=== PATIENT | male | born 1960 | race Caucasian/White ===

== ENCOUNTER → 2016-07-19 | Outpatient (CLI) | payer OTHER, BC ==
[~2016-07-19] MED LIST: AC325T PO; AMLO10TA82 PO; ASPI-933 PO; GBPN300C PO; HYDR-34; HYDR-34 PO; HYDR1TAB PO; IBUP-30 PO; MTP100TCR PO; NF-ESOM40C PO; OMEP20CA12 PO; PNT40TEC PO; SCR1T PO; SCR1T1 PO; ZLP10T
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
== END ==
LOC: RAD 13:35
PROVIDERS: ATTEND Family Medicine
DX: M62.838 Other muscle spasm (principal); G89.11 Acute pain due to trauma; S19.9XXA Unspecified injury of neck, initial encounter; V89.2XXA Person injured in unspecified motor-vehicle accident, traffic, initial encounter; Y99.8 Other external cause status
CPT/HCPCS: 72040

== ENCOUNTER → 2016-07-26 | Outpatient (CLI) | payer OTHER, BC ==
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
[2016-07-26 17:43] LABS: ALBUMIN 4.3 G/DL (3.2-4.5); CALCIUM 9.4 MG/DL (8.5-10.1); CREATININE SERUM 1.64 MG/DL (0.60-1.30); PHOSPHORUS 3.8 MG/DL (2.3-4.7); POTASSIUM 4.2 MMOL/L (3.6-5.0)
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
== END ==
LOC: RAD 16:18
PROVIDERS: ATTEND Family Medicine
DX: M25.512 Pain in left shoulder (principal); M54.2 Cervicalgia
CPT/HCPCS: 36415; 72141; 73221; 80069

== ENCOUNTER 2016-09-26 11:11 | Emergency (ER) | payer BC, OTHER ==
[~2016-09-26] VITALS: Ht 180.3 cm; Wt 90.8 kg
[2016-09-26] MEDS ORDERED: fentaNYL INJECTION 100 MCG/2 ML AMP IVP STA (12:09)
[2016-09-26] MEDS ORDERED: NS IV 1000 ML 1,000 ML IV ONE ×2 (12:09→14:03)
[2016-09-26] MEDS ORDERED: ONDANSETRON 4 MG/2 ML (SDV) Z0FRAN IVP ONE ×2 (12:15→14:45)
--- NOTE | 2016-09-26 12:29 | ED Abdominal Pain ---
General Chief Complaint: Abdominal/GI Problems Stated Complaint: CHEST PAIN/RT ABD PAIN Nursing Triage Note: PT C/O N/V, RLQ PAIN, SINCE SATURDAY. Sepsis Screen: No Definite Risk Source of Information: Patient Exam Limitations: No Limitations History of Present Illness Time Seen By Provider: 12:00 Initial Comments Here with report of nausea, vomiting and right lower quadrant pain for the last 4 days. He is unable to keep anything down. He reports that he has intractable pain despite his fentanyl patch. He had an episode of this several weeks ago and was given a get a CT scan but things cleared up. Afterwards he was doing okay until today. Does have history of right hemicolectomy as well as appendectomy and cholecystectomy. Patient is worried about dehydration. Denies fevers. Timing/Duration: 3-4 Days Severity/Quality: Moderate, Severe, Aching Location: RUQ, RLQ Radiation: No Radiation Activities at Onset: None Associated Symptoms: No Chest Pain, No Fever/Chills, Nausea/Vomiting, No Rash, No Shortness of Air, No Swelling/Mass in Abdomen, Weakness Allergies and Home Medications Allergies Coded Allergies: Penicillins (Unverified Allergy, Unknown, 05/06/06) Home Medications Amlodipine Besylate 10 Mg Tablet, 1 EACH PO DAILY, (Reported) Aspirin 81 Mg Tablet.dr, 81 MG PO DAILY, (Reported) Hydrocodone Bit/Acetaminophen 1 Each Tablet, 1 EACH PO Q6HR PRN, (Reported) Pantoprazole Sodium 40 Mg Tablet.dr, 1 TAB PO DAILY, (Reported) Sucralfate 1 Gm Tab, 1 GM PO TID, (Reported) Review of Systems Constitutional: see HPI, No chills, No fever EENTM: No Symptoms Reported Respiratory: No Symptoms Reported Cardiovascular: No Symptoms Reported Gastrointestinal: See HPI, Abdominal Pain, Denies Diarrhea, Nausea, Vomiting Musculoskeletal: no symptoms reported Skin: no symptoms reported Psychiatric/Neurological: No Symptoms Reported All Other Systems Reviewed Negative Unless Noted: Yes Past Qalcljs-Wyfaun-Ewtjhd Hx Patient Social History Alcohol Use: Denies Use Recreational Drug Use: No Smoking Status: Never a Smoker 2nd Hand Smoke Exposure: No Recent Foreign Travel: No Contact w/Someone Who Travel: No Recent Infectious Disease Expo: No Recent Hopitalizations: Yes Immunizations Up To Date Date of Influenza Vaccine: Dec 23, 2012 Surgeries HX Surgeries: Yes (renal stent and heart cath) Surgeries: Appendectomy Respiratory Hx Respiratory Disorders: No Cardiovascular Hx Cardiac Disorders: Yes (Hx of pericarditis in 2003 /c heart cath) Neurological Hx Neurological Disorders: No Reproductive System Hx Reproductive Disorders: No Genitourinary Hx Genitourinary Disorders: No Gastrointestinal Hx Gastrointestinal Disorders: No Musculoskeletal Hx Musculoskeletal Disorders: No Endocrine Hx Endocrine Disorders: No HEENT HX ENT Disorders: No Cancer Hx Cancer: No Cancer: Colon Psychosocial Hx Psychiatric Problems: No Integumentary HX Skin/Integumentary Disorder: No Blood Transfusions Hx Blood Disorders: No Reviewed Nursing Assessment Reviewed/Agree w Nursing PMH: Yes Family Medical History Significant Family History: No Pertinent Family Hx, Heart Disease Physical Exam Vital Signs VS - Last 72 Hours, by Label 09/26/16 11:25 Temp 97.6 Pulse 117 Resp 20 B/P (MAP) 169/115 Pulse Ox 100 O2 Delivery Room Air Capillary Refill : Less Than 3 Seconds General Appearance: WD/WN, no apparent distress HEENT: PERRL/EOMI, pharynx normal Neck: full range of motion, supple Respiratory: lungs clear, normal breath sounds Cardiovascular: regular rate, rhythm, no murmur Gastrointestinal: non tender, soft Extremities: non-tender, normal inspection Back: normal inspection, no CVA tenderness, no vertebral tenderness Neurologic/Psychiatric: alert, oriented x 3 Skin: normal color, warm/dry Progress/Results/Core Measures Results/Orders Lab Results Laboratory Tests Test 09/26/16 11:20 09/26/16 14:45 Range/Units White Blood Count 10.0 4.3-11.0 10^3/uL Red Blood Count 5.65 4.35-5.85 10^6/uL Hemoglobin 15.1 13.3-17.7 G/DL Hematocrit 46 40-54 % Mean Corpuscular Volume 81 80-99 FL Mean Corpuscular Hemoglobin 27 25-34 PG Mean Corpuscular Hemoglobin Concent 33 32-36 G/DL Red Cell Distribution Width 14.1 10.0-14.5 % Platelet Count 363 130-400 10^3/uL Mean Platelet Volume 10.7 H 7.4-10.4 FL Neutrophils (%) (Auto) 75 42-75 % Lymphocytes (%) (Auto) 16 12-44 % Monocytes (%) (Auto) 8 0-12 % Eosinophils (%) (Auto) 1 0-10 % Basophils (%) (Auto) 0 0-10 % Neutrophils # (Auto) 7.5 1.8-7.8 X 10^3 Lymphocytes # (Auto) 1.6 1.0-4.0 X 10^3 Monocytes # (Auto) 0.8 0.0-1.0 X 10^3 Eosinophils # (Auto) 0.1 0.0-0.3 10^3/uL Basophils # (Auto) 0.0 0.0-0.1 10^3/uL Sodium Level 139 135-145 MMOL/L Potassium Level 3.9 3.6-5.0 MMOL/L Chloride Level 101 98-107 MMOL/L Carbon Dioxide Level 24 21-32 MMOL/L Anion Gap 14 5-14 MMOL/L Blood Urea Nitrogen 21 H 7-18 MG/DL Creatinine 1.88 H 0.60-1.30 MG/DL Estimat Glomerular Filtration Rate 38 BUN/Creatinine Ratio 11 Glucose Level 121 H 70-105 MG/DL Calcium Level 10.7 H 8.5-10.1 MG/DL Magnesium Level 2.0 1.8-2.4 MG/DL Total Bilirubin 0.8 0.1-1.0 MG/DL Aspartate Amino Transf (AST/SGOT) 20 5-34 U/L Alanine Aminotransferase (ALT/SGPT) 28 0-55 U/L Alkaline Phosphatase 111 40-136 U/L Total Protein 8.4 H 6.4-8.2 GM/DL Albumin 4.6 H 3.2-4.5 GM/DL Urine Color YELLOW Urine Clarity CLEAR Urine pH 6 5-9 Urine Specific [place] 1.010 L 1.016-1.022 Urine Protein 1+ H NEGATIVE Urine Glucose (UA) NEGATIVE NEGATIVE Urine Ketones NEGATIVE NEGATIVE Urine Nitrite NEGATIVE NEGATIVE Urine Bilirubin NEGATIVE NEGATIVE Urine Urobilinogen NORMAL NORMAL MG/DL Urine Leukocyte Esterase NEGATIVE NEGATIVE Urine RBC (Auto) NEGATIVE NEGATIVE Urine RBC RARE /HPF Urine WBC NONE /HPF Urine Squamous Epithelial Cells RARE /HPF Urine Crystals NONE /LPF Urine Bacteria NEGATIVE /HPF Urine Casts NONE /LPF Urine Mucus NEGATIVE /LPF Urine Other FEW SPERM H /HPF Urine Culture Indicated NO My Orders Orders - MIGUEL HAIRSTON MD Cbc With Automated Diff (09/26/16 12:09) Comprehensive Metabolic Panel (09/26/16 12:09) Magnesium (09/26/16 12:09) Ua Culture If Indicated (09/26/16 12:09) Saline Lock/Iv-Start (09/26/16 12:09) Ns Iv 1000 Ml (Sodium Chloride 0.9%) (09/26/16 12:09) Ondansetron Injection (Zofran Injectio (09/26/16 12:15) Fentanyl Injection (Sublimaze Injection (09/26/16 12:09) Ct Abdomen/Pelvis Wo (09/26/16 12:55) Ns Iv 1000 Ml (Sodium Chloride 0.9%) (09/26/16 14:03) Ondansetron Injection (Zofran Injectio (09/26/16 14:45) Drug Screen Stat (Urine) (09/26/16 15:25) Medications Given in ED Current Medications Medications Dose Ordered Sig/Jamari Route Start Time Stop Time Status Last Admin Dose Admin Ondansetron HCl 4 mg ONCE ONCE IVP 09/26/16 12:15 09/26/16 12:16 DC 09/26/16 12:19 4 MG Ondansetron HCl 4 mg ONCE ONCE IVP 09/26/16 14:45 09/26/16 14:46 DC 09/26/16 15:00 4 MG Sodium Chloride 1,000 ml @ 0 mls/hr Q0M ONCE IV 09/26/16 12:09 09/26/16 12:11 DC 09/26/16 12:19 0 MLS/HR Vital Signs/I&O Vital Sign - Last 12Hours 09/26/16 11:25 Temp 97.6 Pulse 117 Resp 20 B/P (MAP) 169/115 Pulse Ox 100 O2 Delivery Room Air Blood Pressure Mean: 133 Progress Note : Progress Note Seen and evaluated. IV, labs and UA ordered. EKG ordered. Normal saline 1 L bolus. Fentanyl 100 g IV and Zofran 4 mg IV for pain and nausea. Monitor patient. CT abdomen and pelvis without contrast ordered due to patient's high creatinine which is fairly typical for him. 58621: Patient with persistence of nausea and vomiting. Zofran 4 mg IV ordered. Monitor patient. THis did improve his nausea. I discussed the case with Dr Ventura. We will discharge the patient home with RX for Zofran and have him follow up with Dr Ventura. Discussed with patient who verbalized understanding of instructions and agreement with plan. ECG Initial ECG Impression Date: Sep 26, 2016 Initial ECG Impression Time: 11:17 Initial ECG Rate: 117 Initial ECG Rhythm: S.Tach Comment Sinus tachycardia with normal axis. Question of left ventricular hypertrophy. No evidence of ST elevation PA. Similar to previous of 01/21/13. Interpreted by me. Diagnostic Imaging Diagonstic Imaging: CT Plain Films/CT/US/NM/MRI: abdomen, pelvis Comments VIA [facility] [place], [place] NAME: MIGUEL WHALEY [facility] REC#: [id number] PT STATUS: REG ER : 1960 PHYSICIAN: MIGUEL HAIRSTON MD ADMIT DATE: 09/26/16/ER Draft Date of Exam:09/26/16 CT ABDOMEN/PELVIS WO PROCEDURE: CT abdomen and pelvis without contrast. TECHNIQUE: Multiple contiguous axial images were obtained through the abdomen and pelvis without the use of intravenous contrast. INDICATION: Right lower quadrant pain. FINDINGS: There is minimal atelectasis in the right lung base. The liver, the spleen, the pancreas, and the adrenal glands appear unremarkable for an unenhanced exam. Surgical clips in the cholecystectomy bed and around the right kidney are seen. There is stable dilatation of the right renal pelvis without dilatation of the calyces, similar to 2015 exam. There is also dilatation of the distal right ureter, minimally more prominent compared to 2015. No urinary tract stones. The urinary bladder is mildly dilated with no focal lesion. The abdominal aorta is normal in caliber. No para-aortic significantly enlarged lymph node is seen. There is diverticulosis with no diverticulitis. Suture in the cecum is seen. Nonspecific 7 mm omental nodule is seen anteriorly in the mid right abdomen. There is also minimal enlargement of mesenteric lymph nodes. This could be reactive to infectious or inflammatory process. Tiny fat-containing umbilical hernia is seen. Osseous structures demonstrate degenerative changes in the lower lumbar spine. IMPRESSION: There is minimal enlargement of mesenteric and anterior right omental lymph nodes, perhaps secondary to inflammatory or infectious process. Based on prior history of malignancy, followup CT scan in three months is recommended to ensure no further significant enlargement is seen. Dictated on workstation # [id number] Dict: 09/26/16 1359 Trans: 09/26/16 [id number] [id number] Interpreted by: MAGALI DUNCAN MD Electronically signed by: Departure Impression Impression: Primary Impression: Nausea and vomiting Qualified Codes: R11.14 - Bilious vomiting Additional Impression: Right lower quadrant abdominal pain Disposition: 01 HOME, SELF-CARE Condition: Stable Departure-Patient Inst. Decision time for Depature: 15:37 Referrals: RADHA VENTURA MD (PCP/Family) Primary Care Physician Patient Instructions: Acute Abdomen (Belly Pain), Adult (DC), Nausea and Vomiting, Adult (DC) Add. Discharge Instructions: All discharge instructions reviewed with patient and/or family. Voiced understanding. Clear liquid diet for 24 hours and then advance as tolerated. Follow-up with your doctor next week for recheck and further evaluation. Return for worse pain , fever, vomiting, weakness, breathing problems or other concerns as needed. Scripts Ondansetron (Ondansetron Odt) 4 Mg Tab.rapdis 4 MG PO Q6H Y for NAUSEA/VOMITING, #20 TAB 0 Refills Prov: MIGUEL HAIRSTON MD 09/26/16 Copy Copies To 1: RADHA VENTURA MD, TIMOTHY D MD Sep 26, 2016 12:29
[2016-09-26 12:31] LABS: BASOPHILS % (AUTO) 0 % (0-10); EOSINOPHILS # (AUTO) 0.1 10^3/uL (0.0-0.3); EOSINOPHILS % (AUTO) 1 % (0-10); LYMPHOCYTES # (AUTO) 1.6 X 10^3 (1.0-4.0); LYMPHOCYTES % (AUTO) 16 % (12-44); MEAN CORPUSCULAR HEMOGLOBIN 27 PG (25-34); MEAN CORPUSCULAR HGB CONC 33 G/DL (32-36); MEAN CORPUSCULAR VOLUME 81 FL (80-99); MEAN PLATELET VOLUME 10.7 FL (7.4-10.4); MONOCYTES # (AUTO) 0.8 X 10^3 (0.0-1.0); MONOCYTES % (AUTO) 8 % (0-12); NEUTROPHILS # (AUTO) 7.5 X 10^3 (1.8-7.8); NEUTROPHILS % (AUTO) 75 % (42-75); PLATELET COUNT 363 10^3/uL (130-400); RED BLOOD COUNT 5.65 10^6/uL (4.35-5.85); RED CELL DISTRIBUTION WIDTH 14.1 % (10.0-14.5)
[2016-09-26 12:35] LABS: ALBUMIN 4.6 GM/DL (3.2-4.5); BILIRUBIN,TOTAL 0.8 MG/DL (0.1-1.0); CALCIUM 10.7 MG/DL (8.5-10.1); CREATININE SERUM 1.88 MG/DL (0.60-1.30); POTASSIUM 3.9 MMOL/L (3.6-5.0); TOTAL PROTEIN 8.4 GM/DL (6.4-8.2)
--- NOTE | 2016-09-26 14:39 | Diagnostic Imaging Report ---
PROCEDURE: CT abdomen and pelvis without contrast. TECHNIQUE: Multiple contiguous axial images were obtained through the abdomen and pelvis without the use of intravenous contrast. INDICATION: Right lower quadrant pain. FINDINGS: There is minimal atelectasis in the right lung base. The liver, the spleen, the pancreas, and the adrenal glands appear unremarkable for an unenhanced exam. Surgical clips in the cholecystectomy bed and around the right kidney are seen. There is stable dilatation of the right renal pelvis without dilatation of the calyces, similar to 2015 exam. There is also dilatation of the distal right ureter, minimally more prominent compared to 2015. No urinary tract stones. The urinary bladder is mildly dilated with no focal lesion. The abdominal aorta is normal in caliber. No para-aortic significantly enlarged lymph node is seen. There is diverticulosis with no diverticulitis. Suture in the cecum is seen. Nonspecific 7 mm omental nodule is seen anteriorly in the mid right abdomen. There is also minimal enlargement of mesenteric lymph nodes. This could be reactive to infectious or inflammatory process. Tiny fat-containing umbilical hernia is seen. Osseous structures demonstrate degenerative changes in the lower lumbar spine. IMPRESSION: There is minimal enlargement of mesenteric and anterior right omental lymph nodes, perhaps secondary to inflammatory or infectious process. Based on prior history of malignancy, followup CT scan in three months is recommended to ensure no further significant enlargement is seen. Dictated by: Dictated on workstation # [id number]
[2016-09-26 14:52] LABS: BILIRUBIN,URINE NEGATIVE (NEGATIVE); KETONES,URINE NEGATIVE (NEGATIVE); LEUKOCYTE ESTERASE ,URINE NEGATIVE (NEGATIVE); NITRITE,URINE NEGATIVE (NEGATIVE); PH,URINE 6 (5-9); PROTEIN,URINE 1+ (NEGATIVE); UROBILINOGEN,URINE NORMAL (NORMAL)
[2016-09-26 14:59] LABS: SQUAMOUS EPITHELIAL CELL,UR RARE /HPF
[2016-09-26] MEDS ORDERED: ONDA4TAB11 PO (15:40)
[2016-09-26 15:44] VITALS: BP 155/86
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
== END 2016-09-26 15:44 | disposition home or self-care (01) ==
LOC: EDUNIT# 11:11 → ER 11:13
DX: R11.2 Nausea with vomiting, unspecified (principal); R10.31 Right lower quadrant pain; R10.11 Right upper quadrant pain; I31.9 Disease of pericardium, unspecified; Z90.49 Acquired absence of other specified parts of digestive tract; Z85.038 Personal history of other malignant neoplasm of large intestine; Z96.0 Presence of urogenital implants; Z79.82 Long term (current) use of aspirin
CPT/HCPCS: 36415; 74176; 80053; 80306; 81000; 83735; 85025; 93005; 96361; 96374; 96375; 96376

== ENCOUNTER 2016-10-18 11:20 | Outpatient (RCR) | payer BC ==
[~2016-10-18 11:20] MED LIST changes: +ONDA4TAB11 PO
[2016-10-18 11:34] LABS: BASOPHILS % (AUTO) 0 % (0-10); EOSINOPHILS # (AUTO) 0.1 10^3/uL (0.0-0.3); EOSINOPHILS % (AUTO) 2 % (0-10); LYMPHOCYTES # (AUTO) 1.4 X 10^3 (1.0-4.0); LYMPHOCYTES % (AUTO) 23 % (12-44); MEAN CORPUSCULAR HEMOGLOBIN 27 PG (25-34); MEAN CORPUSCULAR HGB CONC 33 G/DL (32-36); MEAN CORPUSCULAR VOLUME 83 FL (80-99); MEAN PLATELET VOLUME 10.9 FL (7.4-10.4); MONOCYTES # (AUTO) 0.5 X 10^3 (0.0-1.0); MONOCYTES % (AUTO) 8 % (0-12); NEUTROPHILS % (AUTO) 68 % (42-75); PLATELET COUNT 270 10^3/uL (130-400); RED CELL DISTRIBUTION WIDTH 14.4 % (10.0-14.5); WHITE BLOOD COUNT 5.9 10^3/uL (4.3-11.0)
== END 2016-12-22 | disposition home or self-care (01) ==
LOC: EDSTATUS 11:20 → LAB 11:20
PROVIDERS: ATTEND Family Medicine
DX: K92.1 Melena (principal)
CPT/HCPCS: 36415; 85025

== ENCOUNTER 2016-11-05 14:52 | Outpatient (RCR) | payer BC ==
[2016-10-10 14:08] LABS: BASOPHILS % (AUTO) 0 % (0-10); EOSINOPHILS # (AUTO) 0.2 10^3/uL (0.0-0.3); EOSINOPHILS % (AUTO) 3 % (0-10); LYMPHOCYTES # (AUTO) 1.2 X 10^3 (1.0-4.0); LYMPHOCYTES % (AUTO) 21 % (12-44); MEAN CORPUSCULAR HEMOGLOBIN 27 PG (25-34); MEAN CORPUSCULAR HGB CONC 32 G/DL (32-36); MEAN CORPUSCULAR VOLUME 84 FL (80-99); MONOCYTES # (AUTO) 0.6 X 10^3 (0.0-1.0); MONOCYTES % (AUTO) 10 % (0-12); NEUTROPHILS # (AUTO) 3.9 X 10^3 (1.8-7.8); NEUTROPHILS % (AUTO) 67 % (42-75); PLATELET COUNT 281 10^3/uL (130-400); RED BLOOD COUNT 4.47 10^6/uL (4.35-5.85); RED CELL DISTRIBUTION WIDTH 14.2 % (10.0-14.5); WHITE BLOOD COUNT 5.8 10^3/uL (4.3-11.0)
[2016-10-10 14:35] LABS: ALBUMIN 3.8 GM/DL (3.2-4.5); BILIRUBIN,TOTAL 0.4 MG/DL (0.1-1.0); CALCIUM 9.2 MG/DL (8.5-10.1); CREATININE SERUM 1.55 MG/DL (0.60-1.30); POTASSIUM 4.3 MMOL/L (3.6-5.0); TOTAL PROTEIN 6.6 GM/DL (6.4-8.2)
[2016-10-16 07:25] LABS: NUMBER HOURS COLLECTED 24 HOURS; URINE VOLUME REF 2350 ML
[2016-10-19 11:52] LABS: 5 HIAA SEROTONIN URINE MG/L 1.3 MG/L; 5 HIAA SEROTONIN URINE RATIO 3 mg/gCR (0-14); 5HIAA CREATININE 45 MG/DL; CREATININE SEROTONIN 1058 MG/D (800-2100)
[2016-10-19 11:53] LABS: 5 HIAA URINE INTERPRETATION SEE FOOTNOTE
== END 2016-12-22 | disposition home or self-care (01) ==
LOC: ONC 14:52
PROVIDERS: ATTEND Internal Medicine Hematology & Oncology
DX: Z08 Encounter for follow-up examination after completed treatment for malignant neoplasm (principal); Z85.828 Personal history of other malignant neoplasm of skin; Z85.89 Personal history of malignant neoplasm of other organs and systems
CPT/HCPCS: 36415; 80053; 83497; 83615; 85025; 86316

== ENCOUNTER → 2017-01-02 | Outpatient (CLI) | payer BC ==
--- NOTE | 2017-01-02 10:57 | Diagnostic Imaging Report ---
PROCEDURE: CT abdomen and pelvis without contrast. TECHNIQUE: Multiple contiguous axial images were obtained through the abdomen and pelvis without the use of intravenous contrast. INDICATION: History of malignancy. COMPARISON: 09/26/2016 FINDINGS: Included portions of the lung bases show a small 3 mm micronodule in the included portions of the lateral margins of the left upper lobe (image 9, series 2). This, however, is stable compared to 09/17/2014. Small subpleural micronodule is also noted within the posterior medial margin of the right lower lobe. This too, however, is stable (image 24, series 2 compared to image 42, series 2). CT abdomen: Postsurgical changes of the right lower abdominal quadrant and right renal fossa are again identified. The kidneys have a stable noncontrast CT appearance. Nonobstructive calculus is again noted on the right. The spleen, liver, pancreas, and adrenal glands have an unremarkable noncontrast CT appearance. Small bowel loops are nondistended. Normal appendix cannot be adequately identified, but is likely surgically absent. There is no loculated fluid collection, free fluid, nor free air within the abdomen. No abnormal mesenteric or retroperitoneal adenopathy is seen. Bony structures show no acute abnormalities. CT pelvis: There is asymmetric prominence of the distal right ureter. Urinary bladder is unopacified. No calculi are seen within the urinary bladder. There is no loculated fluid collection, free fluid, nor free air within the pelvis. No abnormal lymph nodes are seen. Bony structures show no acute abnormalities. IMPRESSION: 1. Stable CT of the abdomen and pelvis. There is no evidence of recurrent or residual metastatic or malignant disease. 2. Stable micronodules within the included portions of the left upper and right lower lobes. Dictated by: Dictated on workstation # [id number]
== END ==
LOC: RAD 10:00
PROVIDERS: ATTEND Internal Medicine Hematology & Oncology
DX: C18.1 Malignant neoplasm of appendix (principal); R91.8 Other nonspecific abnormal finding of lung field
CPT/HCPCS: 74176

== ENCOUNTER 2017-01-16 11:00 | Outpatient (RCR) | payer BC ==
[2017-04-08] MEDS ORDERED: HYOS0.1281 PO (08:00)
== END 2017-04-16 | disposition home or self-care (01) ==
LOC: ONC 11:00
PROVIDERS: ATTEND Internal Medicine Hematology & Oncology
DX: Z08 Encounter for follow-up examination after completed treatment for malignant neoplasm (principal); Z85.038 Personal history of other malignant neoplasm of large intestine; Z85.528 Personal history of other malignant neoplasm of kidney; R19.7 Diarrhea, unspecified; I12.9 Hypertensive chronic kidney disease with stage 1 through stage 4 chronic kidney disease, or unspecified chronic kidney disease; N18.3 Chronic kidney disease, stage 3 (moderate); Z79.899 Other long term (current) drug therapy
CPT/HCPCS: 99213

== ENCOUNTER 2017-04-08 04:53 | Emergency (ER) | payer BC ==
[~2017-04-08] VITALS: Ht 177.8 cm; Wt 75.7 kg
--- OUTSIDE RECORDS SUMMARY | 2017-04-08 05:26 | XMS REPORT | Clinical Summary ---
Author Author [facility] Organization [facility] Address Unknown Phone Unavailable Care Team Providers Care It Security Administrator Name Role Phone PCP Unavailable Source Comments Some departments are not documenting in the electronic medical record. If you do not see the information that you expected, contact Release of Information in the Health Information Management department at [phone] for further assistance in locating additional records.[facility] Allergies Active Allergy Reactions Severity Noted Date Comments Penicillins RASH 02/06/2013 Current Medications Prescription Sig. Disp. Refills Start [...] referred to Dr. Jessica for laparoscopic appendectomy 08/21 at [facility] 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 No evidence of recurrence on CT scan. Continue to follow with urology. Family History Medical History Relation Name Comments Diabetes Brother None Reported Father Cancer-Prostate Maternal Grandfather Heart Attack Maternal Grandfather Hypertension Maternal Grandfather Arthritis-osteo Maternal Grandmother None Reported Maternal Uncle Unknown to Patient Mother Cancer Paternal Aunt Brain Tumor Paternal Grandfather Unknown to Patient Paternal Grandfather Unknown to Patient Paternal Grandmother None Reported Paternal Uncle Relation Name Status Comments Brother Father Maternal Grandfather Maternal Grandmother Maternal Uncle Mother Paternal Aunt Paternal Grandfather Paternal Grandmother Paternal Uncle Social History Tobacco Use Types Packs/Day Years Used Date Never Smoker Smokeless Tobacco: Never Used Alcohol Use Drinks/Week oz/Week Comments Yes 15 Cans of 9.0 beer Sex Assigned at Date Recorded Not on file Last Filed Vital Signs Vital Sign Reading Time Taken Blood Pressure 157/101 09/22/2013 1:57 PM CDT Pulse 96 09/22/2013 1:57 PM CDT Temperature 36.6 C (97.9 F) 02/19/2013 9:07 AM [employer]ER Respiratory Rate 16 03/10/2013 2:15 PM [employer]ER Oxygen Saturation 100% 09/22/2013 1:57 PM CDT Inhaled Oxygen - - Concentration Weight 88.7 kg (195 lb 9.6 oz) 09/22/2013 1:57 PM CDT Height 176.5 cm (5' 9.5") 09/22/2013 1:57 PM CDT Body Mass Index 28.47 09/22/2013 1:57 PM CDT Plan of Treatment Health Maintenance Due Date Last Done Comments HEPATITIS C SCREENING 1961 PHYSICAL (COMPREHENSIVE) 1968 EXAM PERTUSSIS VACCINE 1972 TETANUS VACCINE 1978 COLORECTAL CANCER 11/08/2011 SCREENING INFLUENZA VACCINE 10/23/2016 Results Not on filefrom Last 3 Months
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
[2017-04-08] MEDS ORDERED: NS IV 1000 ML 1,000 ML IV STA (06:04)
[2017-04-08] MEDS ORDERED: fentaNYL INJECTION 100 MCG/2 ML AMP IVP STA (06:09)
[2017-04-08 06:11] LABS: BASOPHILS % (AUTO) 0 % (0-10); EOSINOPHILS # (AUTO) 0.2 10^3/uL (0.0-0.3); EOSINOPHILS % (AUTO) 2 % (0-10); HEMATOCRIT 40 % (40-54); HEMOGLOBIN 13.7 G/DL (13.3-17.7); LYMPHOCYTES # (AUTO) 1.7 X 10^3 (1.0-4.0); LYMPHOCYTES % (AUTO) 24 % (12-44); MEAN CORPUSCULAR HEMOGLOBIN 28 PG (25-34); MEAN CORPUSCULAR HGB CONC 35 G/DL (32-36); MEAN CORPUSCULAR VOLUME 80 FL (80-99); MEAN PLATELET VOLUME 10.6 FL (7.4-10.4); MONOCYTES # (AUTO) 0.7 X 10^3 (0.0-1.0); MONOCYTES % (AUTO) 10 % (0-12); NEUTROPHILS # (AUTO) 4.4 X 10^3 (1.8-7.8); NEUTROPHILS % (AUTO) 63 % (42-75); PLATELET COUNT 288 10^3/uL (130-400); RED BLOOD COUNT 4.98 10^6/uL (4.35-5.85)
[2017-04-08] MEDS ORDERED: ONDANSETRON 4 MG/2 ML (SDV) Z0FRAN IVP ONE (06:15)
[2017-04-08] MEDS ORDERED: HYOSCYAMINE 0.125 MG (LEVSIN) TAB SL ONE (06:15)
[2017-04-08 06:22] LABS: ALBUMIN 4.2 GM/DL (3.2-4.5); BILIRUBIN,TOTAL 0.3 MG/DL (0.1-1.0); CALCIUM 9.8 MG/DL (8.5-10.1); CREATININE SERUM 1.76 MG/DL (0.60-1.30); MAGNESIUM 2.1 MG/DL (1.8-2.4); POTASSIUM 3.8 MMOL/L (3.6-5.0); TOTAL PROTEIN 7.6 GM/DL (6.4-8.2)
--- NOTE | 2017-04-08 06:32 | ED Abdominal Pain ---
General Chief Complaint: Abdominal/GI Problems Stated Complaint: R AB PAIN Nursing Triage Note: PT C/O N/V SINCE SATURDAY. HE REPORTS THAT THIS MORNING HE BEGAN HAVING RLQ ABD CRAMPING AND WATERY DIARRHEA. Sepsis Screen: No Definite Risk Source of Information: Patient Exam Limitations: No Limitations History of Present Illness Time Seen By Provider: 05:50 Initial Comments Patient has ER by private conveyance with chief complaint of for the past week he has been having some nausea vomiting and watery stools. He has treated this to probably viral. He does have a history of multiple surgeries on his abdomen to include a right heminephrectomy for renal cell carcinoma and then subsequent right hemicolectomy for a neuroendocrine tumor as well as previous to that had his appendix out and gallbladder removed. He is having pain in his right lower quadrant at the site of one of the scars for his hemicolectomy. He is not feeling any hard knots or bowel protrusion. This morning he started having a [place] to red, tomato juice consistent loose stools and this concerned him so he decided to come the ER. Prior to this he been using Imodium which was working pretty well to keep his stools consistent. He is having no fevers, chills, rash, shortness of breath, chest pain. Allergies and Home Medications Allergies Coded Allergies: Penicillins (Unverified Allergy, Unknown, 05/06/06) Home Medications Amlodipine Besylate 10 Mg Tablet, 1 EACH PO DAILY, (Reported) Aspirin 81 Mg Tablet.dr, 81 MG PO DAILY, (Reported) Hydrocodone Bit/Acetaminophen 1 Each Tablet, 1 EACH PO Q6HR PRN, (Reported) Ondansetron 4 Mg Tab.rapdis, 4 MG PO Q6H PRN for NAUSEA/VOMITING, #20 Ref 0 Prescribed by: MIGUEL HAIRSTON on 09/26/16 1540 Pantoprazole Sodium 40 Mg Tablet., 1 TAB PO DAILY, (Reported) Sucralfate 1 Gm Tab, 1 GM PO TID, (Reported) Review of Systems Constitutional: No chills, No fever, malaise Respiratory: Denies Cough, Denies Shortness of Air Cardiovascular: Denies Chest Pain, Denies Syncope Gastrointestinal: See HPI, Denies Abdomen Distended, Abdominal Pain, Denies Constipated, Diarrhea, Nausea, Vomiting Genitourinary: Denies Burning, Denies Discharge Musculoskeletal: No back pain, No joint pain Skin: No pruritus, No rash Past Tnikvel-Pkdmow-Ohyndh Hx Patient Social History Alcohol Use: Denies Use Recreational Drug Use: No Smoking Status: Never a Smoker 2nd Hand Smoke Exposure: No Recent Foreign Travel: No Contact w/Someone Who Travel: No Recent Infectious Disease Expo: No Recent Hopitalizations: No Immunizations Up To Date Date of Influenza Vaccine: Dec 23, 2012 Seasonal Allergies Seasonal Allergies: No Surgeries History of Surgeries: Yes (renal stent and heart cath, R HEMICOLECTOMY, PARTIAL R NEPHRECTOMY) Surgeries: Appendectomy, Gallbladder Respiratory History of Respiratory Disorde: No Cardiovascular History of Cardiac Disorders: Yes (Hx of pericarditis in 2002 /c heart cath) Neurological History of Neurological Disord: No Reproductive System Hx Reproductive Disorders: No Gastrointestinal History of Gastrointestinal Di: No Musculoskeletal History of Musculoskeletal Dis: No Endocrine History of Endocrine Disorders: No Cancer History of Cancer: Yes (RENAL CELL CA) Cancer: Colon Psychosocial History of Psychiatric Problem: No Integumentary History of Skin or Integumenta: No Blood Transfusions History of Blood Disorders: No Family Medical History Significant Family History: No Pertinent Family Hx, Heart Disease Physical Exam Vital Signs VS - Last 72 Hours, by Label 04/08/17 05:55 Temp 98.3 Pulse 98 Resp 20 B/P (MAP) 139/109 (119) Pulse Ox 98 O2 Delivery Room Air Capillary Refill : Less Than 3 Seconds General Appearance: WD/WN, mild distress HEENT: PERRL/EOMI, pharynx normal Neck: non-tender, normal inspection Respiratory: chest non-tender, lungs clear, normal breath sounds, no respiratory distress, no accessory muscle use Cardiovascular: normal peripheral pulses, regular rate, rhythm, no edema Peripheral Pulses: 2+ Radial Pulses (R), 2+ Radial Pulses (L) Gastrointestinal: soft, abnormal bowel sounds (active), No rebound, tenderness (right mid abdomen at the level of a horizontal surgical scar that is well- healed without induration, erythema, palpable mass, open wound.) Rectal: normal exam, normal rectal tone, No black stool, No blood streaked stool, No hemorrhoids, No mass, No tenderness Extremities: no pedal edema, no calf tenderness, normal capillary refill Back: normal inspection, no vertebral tenderness Neurologic/Psychiatric: alert, oriented x 3 Skin: normal color, warm/dry Progress/Results/Core Measures Results/Orders Lab Results Laboratory Tests Test 04/08/17 05:50 Range/Units White Blood Count 7.0 4.3-11.0 10^3/uL Red Blood Count 4.98 4.35-5.85 10^6/uL Hemoglobin 13.7 13.3-17.7 G/DL Hematocrit 40 40-54 % Mean Corpuscular Volume 80 80-99 FL Mean Corpuscular Hemoglobin 28 25-34 PG Mean Corpuscular Hemoglobin Concent 35 32-36 G/DL Red Cell Distribution Width 14.0 10.0-14.5 % Platelet Count 288 130-400 10^3/uL Mean Platelet Volume 10.6 H 7.4-10.4 FL Neutrophils (%) (Auto) 63 42-75 % Lymphocytes (%) (Auto) 24 12-44 % Monocytes (%) (Auto) 10 0-12 % Eosinophils (%) (Auto) 2 0-10 % Basophils (%) (Auto) 0 0-10 % Neutrophils # (Auto) 4.4 1.8-7.8 X 10^3 Lymphocytes # (Auto) 1.7 1.0-4.0 X 10^3 Monocytes # (Auto) 0.7 0.0-1.0 X 10^3 Eosinophils # (Auto) 0.2 0.0-0.3 10^3/uL Basophils # (Auto) 0.0 0.0-0.1 10^3/uL Sodium Level 140 135-145 MMOL/L Potassium Level 3.8 3.6-5.0 MMOL/L Chloride Level 105 98-107 MMOL/L Carbon Dioxide Level 23 21-32 MMOL/L Anion Gap 12 5-14 MMOL/L Blood Urea Nitrogen 19 H 7-18 MG/DL Creatinine 1.76 H 0.60-1.30 MG/DL Estimat Glomerular Filtration Rate 40 BUN/Creatinine Ratio 11 Glucose Level 116 H 70-105 MG/DL Calcium Level 9.8 8.5-10.1 MG/DL Magnesium Level 2.1 1.8-2.4 MG/DL Total Bilirubin 0.3 0.1-1.0 MG/DL Aspartate Amino Transf (AST/SGOT) 17 5-34 U/L Alanine Aminotransferase (ALT/SGPT) 18 0-55 U/L Alkaline Phosphatase 104 40-136 U/L Total Protein 7.6 6.4-8.2 GM/DL Albumin 4.2 3.2-4.5 GM/DL My Orders Orders - NIALLNEVAEH Costello Ct Abdomen/Pelvis Wo (04/08/17 06:26) Fentanyl Injection (Sublimaze Injection (04/08/17 07:30) Ua Culture If Indicated (04/08/17 07:19) Medications Given in ED Current Medications Medications Dose Ordered Sig/Jamari Route Start Time Stop Time Status Last Admin Dose Admin Fentanyl Citrate 50 mcg ONCE ONCE IVP 04/08/17 07:30 04/08/17 07:31 DC 04/08/17 07:21 50 MCG Hyoscyamine Sulfate 0.125 mg ONCE ONCE SL 04/08/17 06:15 04/08/17 06:16 DC 04/08/17 06:24 0.125 MG Ondansetron HCl 4 mg ONCE ONCE IVP 04/08/17 06:15 04/08/17 06:16 DC 04/08/17 06:24 4 MG Vital Signs/I&O Vital Sign - Last 12Hours 04/08/17 05:55 Temp 98.3 Pulse 98 Resp 20 B/P (MAP) 139/109 (119) Pulse Ox 98 O2 Delivery Room Air Blood Pressure Mean: 119 Progress Note : Time: 07:42 Progress Note With his history of partial nephrectomy and creatinine 1.7 we chose to do a CT scan of his abdomen and pelvis without contrast and get a fecal occult blood test. The CT was unremarkable compared to last exam. Adhesions are most likely. The patient does have a appointment with a surgeon in April and about 2-3 weeks in [place], Dr. Guzman to discuss his possible adhesiolysis. Patient saw surgeon for his having a colectomy and colonoscopy 2 years ago and he thinks is probably about due for another scope. He has a history of Harley's esophagus and also gets EGDs from the surgeon. He does not have an appointment and does not know exactly when it supposed to be rescoped. His fecal occult was negative so we will direct him to his primary care office to figure out when his next colonoscopy and EGD will be due as well as we'll give him a trial of some Levsin to see if that helps with the cramping pain in addition to the Zofran he has a home and the opiates he has at home. He also says he has Imodium. Diagnostic Imaging Diagonstic Imaging: CT Plain Films/CT/US/NM/MRI: abdomen, pelvis Comments Postsurgical changes of a partial colectomy on the right side, anastomosis site seen and appears to be patent. Heminephrectomy on the right side with stable appearing dilated ureter compared to 2016. No obvious transition point in the bowels. No free fluid or free air seen in the abdomen. No acute osseous abnormalities. [facility] [place], [place] NAME: MIGUEL WHALEY [facility] REC#: [id number] PT STATUS: REG ER : 1960 PHYSICIAN: NEVAEH TIERNEY MD ADMIT DATE: 04/08/17/ER Draft Date of Exam:04/08/17 CT ABDOMEN/PELVIS WO PROCEDURE: CT abdomen and pelvis without contrast. TECHNIQUE: Multiple contiguous axial images were obtained through the abdomen and pelvis without the use of intravenous contrast. INDICATION: Abdominal pain and cramping. COMPARISON: 01/02/2017. FINDINGS: There is mild bilateral basilar atelectasis. The liver appears unremarkable. The gallbladder is absent. There is no biliary dilatation. The pancreas, spleen and adrenal glands appear unremarkable. There is cortical thinning and irregularity of the left kidney similar the prior study. Postoperative changes of the right kidney again seen. Renal cortical thinning and scarring on the right with some cortical calcification and irregularity of the renal pelvis appears similar to the prior study. No new renal abnormality is suspected. Bladder diverticulum in the posterior right bladder wall is unchanged. No focal inflammatory process is seen. No free fluid, free air or adenopathy demonstrated. There are postoperative changes in the right lower quadrant and bowel. No evidence of bowel obstruction. Abdominal aorta appears normal in caliber. No acute osseous abnormality is demonstrated. IMPRESSION: 1. Overall, no significant interval change from the prior exam. Chronic findings of the kidneys and postoperative changes are stable. Small bladder diverticulum is unchanged. Dictated on workstation # [id number] Dict: 04/08/17 0723 Trans: 04/08/17 0732 [facility] [id number] Interpreted by: ERYN BLUNT DO Electronically signed by: Reviewed: Reviewed by Me Departure Impression Impression: Primary Impression: Abdominal wall pain Additional Impressions: Nausea and vomiting Qualified Codes: R11.2 - Nausea with vomiting, unspecified Diarrhea Qualified Codes: R19.7 - Diarrhea, unspecified Abdominal adhesions Disposition: 01 HOME, SELF-CARE Condition: Improved Departure-Patient Inst. Decision time for Depature: 07:57 Referrals: RADHA VENTURA MD (PCP/Family) Primary Care Physician Patient Instructions: Acute Abdomen (Belly Pain), Adult (DC) Add. Discharge Instructions: If you're having nausea take a tablet of your Zofran every 4 hours as needed. Try and keep small sips of fluids until you're feeling better and then keep up with your drinking. Eating is not as important that while you're having loose stools a brat diet consisting of things that are bland like bananas, rice, applesauce and toast are advised. Make a follow-up appointment with Dr. Ventura your primary care physician to discuss when you need a repeat colonoscopy and EGD. If you're pain becomes intractable despite your pain medicines at home or you're unable to keep up with your drinking please return to the ER for evaluation and management. Keep your follow-up appointment with the surgeon in [place] Dr. Guzman and discuss possible causes of your abdominal pain to include adhesions. If you're having loose stools and painful abdominal cramps you may try one tablet of Levsin every 4 hours as needed. If this is helping you report this to your primary care physician. All discharge instructions reviewed with patient and/or family. Voiced understanding. Scripts Hyoscyamine Sulfate (Levsin) 0.125 Mg Tablet 0.125 MG PO Q4H Y for CRAMPS, #30 TAB 0 Refills Prov: NEVAEH TIERNEY 04/08/17 Copy Copies To 1: RADHA VENTURA MD, TITUS J Apr 08, 2017 06:32
[2017-04-08] MEDS ORDERED: fentaNYL INJECTION 100 MCG/2 ML AMP IVP ONE (07:30)
--- NOTE | 2017-04-08 07:33 | Diagnostic Imaging Report ---
PROCEDURE: CT abdomen and pelvis without contrast. TECHNIQUE: Multiple contiguous axial images were obtained through the abdomen and pelvis without the use of intravenous contrast. INDICATION: Abdominal pain and cramping. COMPARISON: 01/02/2017. FINDINGS: There is mild bilateral basilar atelectasis. The liver appears unremarkable. The gallbladder is absent. There is no biliary dilatation. The pancreas, spleen and adrenal glands appear unremarkable. There is cortical thinning and irregularity of the left kidney similar the prior study. Postoperative changes of the right kidney again seen. Renal cortical thinning and scarring on the right with some cortical calcification and irregularity of the renal pelvis appears similar to the prior study. No new renal abnormality is suspected. Bladder diverticulum in the posterior right bladder wall is unchanged. No focal inflammatory process is seen. No free fluid, free air or adenopathy demonstrated. There are postoperative changes in the right lower quadrant and bowel. No evidence of bowel obstruction. Abdominal aorta appears normal in caliber. No acute osseous abnormality is demonstrated. IMPRESSION: 1. Overall, no significant interval change from the prior exam. Chronic findings of the kidneys and postoperative changes are stable. Small bladder diverticulum is unchanged. Dictated by: Dictated on workstation # [id number]
[2017-04-08] MEDS ORDERED: HYOS0.1281 PO (08:00)
[2017-04-08 08:06] LABS: BILIRUBIN,URINE NEGATIVE (NEGATIVE); CLARITY,URINE CLEAR; COLOR,URINE YELLOW; GLUCOSE, URINE (UA) NEGATIVE (NEGATIVE); KETONES,URINE NEGATIVE (NEGATIVE); LEUKOCYTE ESTERASE ,URINE NEGATIVE (NEGATIVE); NITRITE,URINE NEGATIVE (NEGATIVE); PH,URINE 6 (5-9); PROTEIN,URINE 2+ (NEGATIVE); UROBILINOGEN,URINE NORMAL (NORMAL)
[2017-04-08 08:17] LABS: BACTERIA,URINE NEGATIVE /HPF; URINE OTHER FEW SPERM /HPF; WBC,URINE 0-2 /HPF
[2017-04-08 08:34] VITALS: BP 139/109
== END 2017-04-08 08:37 | disposition home or self-care (01) ==
LOC: EDUNIT# 04:53 → ER 04:55
DX: K66.0 Peritoneal adhesions (postprocedural) (postinfection) (principal); R19.7 Diarrhea, unspecified; Z85.038 Personal history of other malignant neoplasm of large intestine; Z79.82 Long term (current) use of aspirin; Z90.49 Acquired absence of other specified parts of digestive tract; Z90.5 Acquired absence of kidney
CPT/HCPCS: 36415; 74176; 80053; 81000; 83735; 85025; 96361; 96374; 96375; 96376; 99284

== ENCOUNTER → 2017-05-01 | Outpatient (CLI) | payer SELFPAY ==
[~2017-05-01] MED LIST changes: +HYOS0.1281 PO
--- NOTE | 2017-05-01 18:00 | Diagnostic Imaging Report ---
INDICATION: Chronic renal disease. FINDINGS: The right and left kidneys measure 5.0 x 3.2 x 3.6 cm and 9.8 x 5.9 x 4.9 cm, respectively. There is no evidence of hydronephrosis or mass. Cortex is generally thin without discrete lesion. No echogenic calculus is identified. Ureteric jets are seen bilaterally. IMPRESSION: Relatively small right kidney without evidence of obstruction or other acute abnormality. Renal cortical thinning may be related to chronic medical renal disease. No bladder abnormality is detected. Dictated by: Dictated on workstation # [id number]
== END ==
LOC: RAD 16:20
PROVIDERS: ATTEND Internal Medicine
DX: I12.9 Hypertensive chronic kidney disease with stage 1 through stage 4 chronic kidney disease, or unspecified chronic kidney disease (principal); N18.3 Chronic kidney disease, stage 3 (moderate); Z85.528 Personal history of other malignant neoplasm of kidney
CPT/HCPCS: 76770

== ENCOUNTER 2020-12-02 13:35 | Inpatient (IN) | payer BC, OTHER ==
[2020-12-02] VITALS (7 sets, daily range): BP systolic 150–176; BP diastolic 69–97
[~2020-12-02] VITALS: Ht 180.3 cm; Wt 78.5 kg
[2020-12-02 13:50] LABS: BASOPHILS % (AUTO) 0 % (0-10); EOSINOPHILS # (AUTO) 0.1 10^3/uL (0.0-0.3); EOSINOPHILS % (AUTO) 1 % (0-10); LYMPHOCYTES # (AUTO) 1.7 10^3/uL (1.0-4.0); LYMPHOCYTES % (AUTO) 22 % (12-44); MEAN CORPUSCULAR HEMOGLOBIN 15 pg (25-34); MEAN CORPUSCULAR HGB CONC 25 g/dL (32-36); MEAN CORPUSCULAR VOLUME 60 fL (80-99); MEAN PLATELET VOLUME 9.7 fL (9.0-12.2); MONOCYTES # (AUTO) 0.8 10^3/uL (0.0-1.0); MONOCYTES % (AUTO) 10 % (0-12); NEUTROPHILS # (AUTO) 5.3 10^3/uL (1.8-7.8); NEUTROPHILS % (AUTO) 67 % (42-75); PLATELET COUNT 403 10^3/uL (130-400); WHITE BLOOD COUNT 7.9 10^3/uL (4.3-11.0)
[2020-12-02 13:55] LABS: HEMATOCRIT 17 % (40-54); HEMOGLOBIN 4.2 g/dL (13.3-17.7)
[2020-12-02 13:58] LABS: ALBUMIN 3.9 GM/DL (3.2-4.5); POTASSIUM 3.6 MMOL/L (3.6-5.0)
[2020-12-02 14:00] LABS: CALCIUM 9.5 MG/DL (8.5-10.1)
[2020-12-02 14:01] LABS: TOTAL PROTEIN 7.5 GM/DL (6.4-8.2)
[2020-12-02 14:02] LABS: BILIRUBIN,TOTAL 0.4 MG/DL (0.1-1.0); INR 1.1 (0.8-1.4); PROTHROMBIN TIME PATIENT 14.1 SEC (12.2-14.7)
[2020-12-02 14:04] LABS: CREATININE SERUM 2.41 MG/DL (0.60-1.30)
[2020-12-02 14:07] LABS: MAGNESIUM 1.6 MG/DL (1.6-2.4)
[2020-12-02 14:28] LABS: TSH (THYROID ANALYZER) 0.74 UIU/ML (0.35-4.94)
[2020-12-02 14:36] LABS: BILIRUBIN,URINE NEGATIVE (NEGATIVE); CLARITY,URINE CLEAR; COLOR,URINE YELLOW; GLUCOSE, URINE (UA) NEGATIVE (NEGATIVE); KETONES,URINE NEGATIVE (NEGATIVE); LEUKOCYTE ESTERASE ,URINE NEGATIVE (NEGATIVE); NITRITE,URINE NEGATIVE (NEGATIVE); PROTEIN,URINE NEGATIVE (NEGATIVE)
[2020-12-02] MEDS ORDERED: fentaNYL INJ 100 MCG/2 ML AMP IVP STA ×2 (14:39→16:01)
[2020-12-02 14:44] LABS: AMPHETAMINE SCREEN, URINE NEGATIVE (NEGATIVE); BARBITURATE SCREEN URINE NEGATIVE (NEGATIVE); BENZODIAZEPINES SCREEN URINE NEGATIVE (NEGATIVE); CANNABINOID SCREEN, URINE POSITIVE (NEGATIVE); COCAINE SCREEN URINE NEGATIVE (NEGATIVE); METHADONE STAT NEGATIVE (NEGATIVE); METHAMPHETAMINE SCREEN URINE S NEGATIVE (NEGATIVE); OPIATE SCREEN URINE NEGATIVE (NEGATIVE); OXYCODONE STAT NEGATIVE (NEGATIVE); PROPOXYPHENE STAT NEGATIVE (NEGATIVE); TRICYCLIC ANTIDEPRESSANTS SCRE NEGATIVE (NEGATIVE)
[2020-12-02 14:46] LABS: BACTERIA,URINE NEGATIVE /HPF; SQUAMOUS EPITHELIAL CELL,UR RARE /HPF; WBC,URINE RARE /HPF
--- NOTE | 2020-12-02 14:49 | Diagnostic Imaging Report ---
INDICATION: Pain dizziness. EXAMINATION: Chest 12/02/2020 COMPARISON: 01/21/2013 FINDINGS: The cardiomediastinal silhouette is unremarkable. The pulmonary vasculature is within normal limits. The lungs and pleural spaces are clear. IMPRESSION: No evidence of an acute cardiopulmonary process. Dictated by: Dictated on workstation # [id number]
[2020-12-02] MEDS ORDERED: NS IV 500 ML 500 ML ONE (15:20)
--- NOTE | 2020-12-02 15:37 | History & Physical-Hospitalist ---
History of Present Illness HPI/Chief Complaint Patient is a 60-year-old male with a past medical history of insulin- dependent diabetes and hypertension who presented to the emergency department due to hypoxia. He was diagnosed with Covid on November 24 and presented today to the outpatient [facility]. He was found to have oxygen saturations in the 60s and brought emergently to the ER. He was placed on 15 L nonrebreather and saturations only came up to the mid 80s. He was then placed on BiPAP. He is able to answer yes/no questions but otherwise has difficulty with providing history. He is able to nod and shake his head appropriately when asked questions. He complains of minor productive cough, headache, generalized weakness and myalgias. He denies fever, nausea or vomiting, diarrhea, loss of taste or smell. He is unvaccinated against Covid. Date Seen 12/02/20 Time Seen by a Provider: 15:45 Attending Physician PCP Yosvany Srivastava MD Referring Physician Date of Admission Home Medications & Allergies Home Medications Reviewed patient Home Medication Reconciliation performed by pharmacy medication reconciliations orthotic and prosthetic technician and/or nursing. Patients Allergies have been reviewed. Allergies Allergies Coded Allergies Penicillins (Unverified Allergy, Unknown, 05/06/06) Past Pvebryp-Qyzucl-Ytxxjr Hx Patient Social History Marrital Status: Employed/Student: employed Tobacco Use?: No Smoking Status: Unknown if Ever Smoked Use of E-Cig and/or Vaping dev: No Substance use?: No Alcohol Use?: No Pt feels they are or have been: No Immunizations Up To Date Date of Influenza Vaccine: Dec 23, 2012 Tetanus Booster (TDap): Unknown Hepatitis A: Yes Seasonal Allergies Seasonal Allergies: No Current Status Advance Directives: No Primary Language: Mongolian Preferred Spoken Language: Mongolian Past Medical History Surgeries: Appendectomy, Gallbladder Hypertension Diabetes, Insulin dep Colon Blood Disorders: No Family Medical History Reviewed Nursing Family Hx No Pertinent Family Hx, Heart Disease Review of Systems Constitutional: No chills, No fever EENTM: no symptoms reported Respiratory: cough, short of breath Cardiovascular: No chest pain, No edema, No palpitations Psychiatric/Neurological: No Symptoms Reported Physical Exam Physical Exam Vital Signs Vital Signs - First Documented 12/02/20 13:35 Temp 36.7 Pulse 140 Resp 27 B/P (MAP) 152/79 (103) Pulse Ox 100 O2 Delivery Room Air Capillary Refill : Less Than 3 Seconds Height, Weight, BMI Height: 5'10.00" Weight: 167lbs. 3.0oz. 75.592519ml; 25.00 BMI Method:Stated Results Results/Procedures Labs Laboratory Tests 12/02/20 13:41 Patient resulted labs reviewed. Clinical Quality Measures AMI/AHF: ASA po Prior to arrival: Yes MAKAYLA CHAPMAN MD Dec 02, 2020 15:37
--- NOTE | 2020-12-02 15:37 | History & Physical-Hospitalist ---
DIMITRIOS CHUNG A MED STUDENT 12/02/20 1537: History of Present Illness HPI/Chief Complaint Pt is a 60 yo male who presented to ED d/t SOA, tachycardia and blacking out that has been going on for 8 months. These sxs generally occur when the pt is exerting himself. Pt reports leg weakness and inability to walk during these episodes. Pt has hx of colon resection d/t cancer and renal cell carcinoma. Pt has not seen physician in several years for this. Pt denies dark tarry stools, but admits diarrhea. Pt admits to abdominal pain in the area of his previous scar and decreased appetite. Pt reports during his episodes his diastolic BP goes down to 40s. Source: patient Exam Limitations: no limitations Date Seen 12/02/20 Time Seen by a Provider: 15:00 Attending Physician PCP Yosvany Srivastava MD Referring Physician Date of Admission Home Medications & Allergies Home Medications Reviewed patient Home Medication Reconciliation performed by pharmacy medication reconciliations lot technician and/or nursing. Patients Allergies have been reviewed. Allergies Allergies Coded Allergies Penicillins (Unverified Allergy, Unknown, 05/06/06) Past Uzvwptu-Rqbjfs-Guhwfo Hx Patient Social History Tobacco Use?: No Use of E-Cig and/or Vaping dev: No Substance use?: No Alcohol Use?: No Pt feels they are or have been: No Immunizations Up To Date Date of Influenza Vaccine: Dec 23, 2012 Tetanus Booster (TDap): Unknown Hepatitis A: Yes Seasonal Allergies Seasonal Allergies: No Current Status Advance Directives: No Primary Language: Iraqi Preferred Spoken Language: Iraqi Past Medical History Surgeries: Appendectomy, Gallbladder Colon Blood Disorders: No Family Medical History No Pertinent Family Hx, Heart Disease Review of Systems Constitutional: malaise Respiratory: short of breath Gastrointestinal: abdominal pain, diarrhea Genitourinary: no symptoms reported Physical Exam Physical Exam Vital Signs Vital Signs - First Documented 12/02/20 13:35 Temp 36.7 Pulse 140 Resp 27 B/P (MAP) 152/79 (103) Pulse Ox 100 O2 Delivery Room Air Capillary Refill : Less Than 3 Seconds Height, Weight, BMI Height: 5'10.00" Weight: 167lbs. 3.0oz. 75.613334yq; 25.00 BMI Method:Stated Results Results/Procedures Labs Laboratory Tests 12/02/20 13:41 Patient resulted labs reviewed. Assessment/Plan Admission Diagnosis Anemia History of colon cancer Reason for Inpatient Admission: Anemia History of colon cancer Assessment and Plan Anemia -H&H 4.2 and 17 -Blood transfusion ordered -Will order labs to be done tomorrow History of colon cancer -Consulted GI for possible GI bleed. 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) Smoking Status: Unknown if Ever Smoked Substance use?: No Current Status Advance Directives: No (Would like to be a full code, would like his sister to be his decision maker if needed) Past Medical History Surgeries: Bowel Surgery, Nephrectomy Kidney Did You Recieve Any Treatments: Yes What Type of Treatment Did You: Surgical Intervention appendiceal carcinois tumor Family Medical History Reviewed Nursing Family Hx Sister alive and healthy Review of Systems All Other Systems Reviewed Negative Unless Noted: Yes (Negative excepted noted.) Physical Exam Physical Exam General Appearance: No Apparent Distress, Chronically ill, Thin Assessment/Plan Admission Diagnosis Admission Status: Inpatient Order (span 2 midnights) Reason for Inpatient Admission: profound anemia Assessment and Plan Patient presented with FALCON and syncope. This has gone on for roughly 8 months. He has not seen a doctor for it but it has continued to happen more frequently and getting worse. He decided to present to the emergency department today because he blacked out. He was found to have a hemoglobin of 4.2. His last labs that were available show a hemoglobin of 13 roughly 3 years ago. He has not followed with a doctor in many years. He has a history of appendiceal carcinoid tumor status post resection. And a history of renal cell carcinoma for which he followed with Dr. Kaur. His sister is at bedside and reports that he looks more pale than normal. He also believes that he is somewhat jaundiced. 2 units have been ordered from the emergency department. He is being admitted to cardiac stepdown. He does have a very mild troponin elevation likely due to anemia. Will monitor on telemetry and if chest pain recurs will consult cardiology. I have discussed his case with Dr. Carnes We will see him in consultation. He denies any dark, tarry, sticky stools. He has been having some diarrhea. He is also lost roughly 25 pounds due to early satiety. Dr. Kaur has been consulted from the emergency. Did discuss that given his history of cancer this is highly suspicious for recurrence. He and his sister acknowledged and expressed understanding. Diagnosis/Problems Diagnosis/Problems (1) Microcytic anemia (2) Carcinoid tumor (3) Renal cell carcinoma (4) Weight loss (5) NSTEMI (non-ST elevated myocardial infarction) (6) Renal failure Status: Acute (7) Severe anemia Status: Acute (8) Hx of renal cell carcinoma Status: Acute Supervisory-Addendum Brief Verification & Attestation Participated in pt care: history, MDM, physical Personally performed: exam, history, MDM, supervision of care Care discussed with: Medical Student Procedures: n/a Results interpretation: Verified all documentation Verification and Attestation of Medical Student E/M Service A medical student performed and documented this service in my presence. I reviewed and verified all information documented by the medical student and made modifications to such information, when appropriate. I personally performed the physical exam and medical decision making. Kika Buckley, Dec 02, 2020,16:10 DIMITRIOS CHUNG MED STUDENT Dec 02, 2020 15:37 KIKA BUCKLEY MD Dec 02, 2020 16:15
[2020-12-02] MEDS ORDERED: fentaNYL INJ 100 MCG/2 ML AMP ONE (16:02)
--- NOTE | 2020-12-02 16:07 | Consultation - Surgery ---
YOLANDA WOODY MED STUDENT 12/02/20 1606: History of Present Illness History of Present Illness Patient Consulted On(chadnan/time) 12/02/20 15:57 Date Seen by Provider: Dec 02, 2020 Time Seen by Provider: 15:30 Reason for Visit: anemia History of Present Illness 60 y/o M presented to the ED for a chief complaint of SOB and CP that started this morning while he was weed eating. He states that he's had spells of dizziness/weakness for the last 8 months that have progressively gotten worse. He's had 4-5 episodes within the past week. The episodes normally last 30 mins to 2 hours. During his spells, he will become dizzy, have blurred vision, AMARO, tachycardia, low bp, stiff neck pain on the L, chest pressure, difficulty catching his breath, arm and leg weakness, and has LOC for a couple of seconds on occasions. Physical activity makes it worse, laying down helps. He denies se eing a physician for these episodes. He has had diarrheal episodes recently, decreased appetite, and unintentional 25lbs weight loss in the past year. He denies previous episodes of anemia, blood in the stoo, N/V, fever, cough, chills, palpitations, numbness/tingling. Patient is not vaccinated against Covid. Allergies and Home Medications Allergies Coded Allergies: Penicillins (Unverified Allergy, Unknown, 05/06/06) Patient Home Medication List Amlodipine Besylate (Norvasc Tablet) 10 Mg Tablet, 1 EACH PO DAILY, (Reported) Entered as Reported by: ÁNGELA ISAAC on 01/21/13 0247 Aspirin (Ecotrin) 81 Mg Tablet.dr, 81 MG PO DAILY, (Reported) Entered as Reported by: PRASAD HARPER on 01/22/13 0826 Hydrocodone Bit/Acetaminophen (Lortab 7.5 Mg Tablet) 1 Each Tablet, 1 EACH PO Q6HR PRN, (Reported) Entered as Reported by: CURTIS HECTOR on 01/21/13 0521 Hyoscyamine Sulfate (Levsin) 0.125 Mg Tablet, 0.125 MG PO Q4H PRN for CRAMPS Prescribed by: NEVAEH TIERNEY on 04/08/17 0800 Ondansetron (Ondansetron Odt) 4 Mg Tab.rapdis, 4 MG PO Q6H PRN for NAUSEA/V OMITING Prescribed by: MIGUEL HAIRSTON on 09/26/16 1540 Pantoprazole Sodium (Protonix) 40 Mg Tablet.dr, 1 TAB PO DAILY, (Reported) Entered as Reported by: AME KEIM on 01/22/13824 Sucralfate (Carafate) 1 Gm Tab, 1 GM PO TID, (Reported) Entered as Reported by: AME KEIM on 01/22/13824 Past Jaeersr-Dfnuax-Xqojen Hx Patient Social History Smoking Status: Unknown if Ever Smoked 2nd Hand Smoke Exposure: No Recent Hopitalizations: No Alcohol Use?: No Have you traveled recently?: No Immunizations Up To Date Date of Influenza Vaccine: Dec 23, 2012 Seasonal Allergies Seasonal Allergies: No Surgeries History of Surgeries: Yes (renal stent and heart cath, R HEMICOLECTOMY, PARTIAL R NEPHRECTOMY) Surgeries: Appendectomy, Gallbladder Respiratory History of Respiratory Disorde: No Cardiovascular History of Cardiac Disorders: Yes (Hx of pericarditis in 2002 /c heart cath) Cardiac Disorders: Hypertension Neurological History of Neurological Disord: No Reproductive System Hx Reproductive Disorders: No Genitourinary History of Genitourinary Disor: No Gastrointestinal History of Gastrointestinal Di: Yes (CKD - GFR 30 in 2018) Gastrointestinal Disorders: Harley's Esophagus Musculoskeletal History of Musculoskeletal Dis: No Endocrine History of Endocrine Disorders: No Cancer History of Cancer: Yes (RENAL CELL CA) Cancer: Colon (neuroendocrine - appendix), Kidney (renal cell carcinoma) Psychosocial History of Psychiatric Problem: No Integumentary History of Skin or Integumenta: No Blood Transfusions History of Blood Disorders: No Family Medical History Significant Family History: Heart Disease, Cancer (skin cancer - father), Diabetes (brother), Hypertension (father), Psychiatric Problems (MS - mom; parkinsons - brother), Other Conditions/Hx (diverticulitis - brother/sister) Review of Systems-General Constitutional: No chills, No diaphoresis; dizziness; No fever; weakness EENTM: blurred vision; No hearing loss, No ear pain, No eye pain, No hoarseness Respiratory: No cough; dyspnea on exertion; No hemoptysis; short of breath Cardiovascular: chest pain; No edema, No palpitations Gastrointestinal: No abdominal pain, No constipation; diarrhea; No hematemesis, No jaundice; loss of appetite; No melena, No nausea, No vomiting Genitourinary: No decreased output, No discharge, No frequency Musculoskeletal: back pain (L neck pain); No joint pain, No joint swelling, No muscle stiffness Skin: No lesions, No lumps, No rash Psychiatric/Neurological: Headache; Denies Paresthesia, Denies Tingling, Denies Tremors; Weakness Physical Exam-General Problems Physical Exam Vital Signs Vital Signs - First Documented 12/02/20 13:35 Temp 36.7 Pulse 140 Resp 27 B/P (MAP) 152/79 (103) Pulse Ox 100 O2 Delivery Room Air Capillary Refill : Less Than 3 Seconds General Appearance: WD/WN, no apparent distress Eyes: Bilateral Eye PERRL, Bilateral Eye EOMI HEENT: other (pale tongue) Neck: non-tender, supple Respiratory: chest non-tender, lungs clear, normal breath sounds, no respiratory distress, no accessory muscle use Cardiovascular: no murmur, tachycardia Gastrointestinal: normal bowel sounds, soft, no organomegaly, tenderness (over surgical scar) Extremities: non-tender, no pedal edema, no calf tenderness Neurologic/Psychiatric: no motor/sensory deficits, alert, normal mood/affect, oriented x 3 Skin: warm/dry, pallor Lymphatic: no adenopathy Data Review Labs Laboratory Tests 12/02/20 13:41: White Blood Count 7.9, Red Blood Count 2.81L, Hemoglobin 4.2*L, Hematocrit 17*L, Mean Corpuscular Volume 60L, Mean Corpuscular Hemoglobin 15L, Mean Corpuscular Hemoglobin Concent 25L, Red Cell Distribution Width 22.3H, Platelet Count 403H, Mean Platelet Volume 9.7, Immature Granulocyte % (Auto) 0, Neutrophils (%) (Auto) 67, Lymphocytes (%) (Auto) 22, Monocytes (%) (Auto) 10, Eosinophils (%) (Auto) 1, Basophils (%) (Auto) 0, Neutrophils # (Auto) 5.3, Lymphocytes # (Auto) 1.7, Monocytes # (Auto) 0.8, Eosinophils # (Auto) 0.1, Basophils # (Auto) 0.0, Immature Granulocyte # (Auto) 0.0, Prothrombin Time 14.1, INR Comment 1.1, Activated Partial Thromboplast Time 28, Sodium Level 137, Potassium Level 3.6, Chloride Level 105, Carbon Dioxide Level 14L, Anion Gap 18H, Blood Urea Nitrogen 22H, Creatinine 2.41H, Estimat Glomerular Filtration Rate 28, BUN/Creatinine Ratio 9, Glucose Level 162H, Calcium Level 9.5, Corrected Calcium 9.6, Magnesium Level 1.6, Total Bilirubin 0.4, Aspartate Amino Transf (AST/SGOT) 17, Alanine Aminotransferase (ALT/SGPT) 9, Alkaline Phosphatase 64, Total Creatine Kinase 79, Creatine Kinase MB 1.0, Myoglobin 85.8, Troponin I 0.038H, B-Type Natriuretic Peptide 191.0H, Total Protein 7.5, Albumin 3.9, Amylase Level 125, Lipase 135H, TSH [place] Testing 0.74, Serum Alcohol < 10 12/02/20 14:27: Urine Color YELLOW, Urine Clarity CLEAR, Urine pH 6.0, Urine Specific [place] <=1.005, Urine Protein NEGATIVE, Urine Glucose (UA) NEGATIVE, Urine Ketones NEGATIVE, Urine Nitrite NEGATIVE, Urine Bilirubin NEGATIVE, Urine Urobilinogen 0.2, Urine Leukocyte Esterase NEGATIVE, Urine RBC (Auto) NEGATIVE, Urine RBC NONE, Urine WBC RARE, Urine Squamous Epithelial Cells RARE, Urine Crystals NONE, Urine Bacteria NEGATIVE, Urine Casts NONE, Urine Mucus NEGATIVE, Urine Culture Indicated NO, Urine Opiates Screen NEGATIVE, Urine Oxycodone Screen NEGATIVE, Urine Methadone Screen NEGATIVE, Urine Propoxyphene Screen NEGATIVE, Urine Barbiturates Screen NEGATIVE, Ur Tricyclic Antidepressants Screen NEGATIVE, Urine Phencyclidine Screen NEGATIVE, Urine Amphetamines Screen NEGATIVE, Urine Methamphetamines Screen NEGATIVE, Urine Benzodiazepines Screen NEGATIVE, Urine Cocaine Screen NEGATIVE, Urine Cannabinoids Screen POSITIVEH Assessment/Plan Assessment/Plan Assessment/Plan anemia (Hgb 4.2) SOB elevated troponin, elevated BNP hx of HTN, Harley's esophagus, colon resection, CKD (GFR 28) Plan is to do EGD and colonoscopy tomorrow. Bowel prep today. Liquid diet only today, no red liquids. NPO after midnight. Discontinue ibuprofen. Admit to hospital and give blood transfusions until above [address] with [address] Hughes about his previous cancer. No imaging with contrast due to CKD. Urine showed clean catch. Drug screen positive for cannabis. CXR negative for a cute cardiopulm findings. Clinical Quality Measures AMI/AHF: ASA po Prior to arrival: Yes POLO BACA DO 12/02/20 1706: History of Present Illness History of Present Illness Time Seen by Provider: 16:36 History of Present Illness Surgery asked to consult regarding anemia. HPI: pt states he has been feeling weak for a long time now; doesn't think he has ever been told he was anemic. Last Colonoscopy was in 2014, "about a year after my colon surgery for Carcinoid". Has not seen anyone since 2016 for his Carcinoid or hx of renal cell CA. Allergies and Home Medications Allergies Coded Allergies: Penicillins (Unverified Allergy, Unknown, 05/06/06) Patient Home Medication List Home Medication List Reviewed: Yes Amlodipine Besylate (Norvasc Tablet) 10 Mg Tablet, 1 EACH PO DAILY, (Reported) Entered as Reported by: ÁNGELA ISAAC on 01/21/13 0247 Aspirin (Ecotrin) 81 Mg Tablet., 81 MG PO DAILY, (Reported) Entered as Reported by: PRASAD HARPER on 01/22/13 0826 Hydrocodone Bit/Acetaminophen (Lortab 7.5 Mg Tablet) 1 Each Tablet, 1 EACH PO Q6HR PRN, (Reported) Entered as Reported by: CURTIS HECTOR on 01/21/13 0521 Hyoscyamine Sulfate (Levsin) 0.125 Mg Tablet, 0.125 MG PO Q4H PRN for CRAMPS Prescribed by: NEVAEH TIERNEY on 04/08/17 0800 Ondansetron (Ondansetron Odt) 4 Mg Tab.rapdis, 4 MG PO Q6H PRN for NAUSEA/VOMITING Prescribed by: MIGUEL HAIRSTON on 09/26/16 1540 Pantoprazole Sodium (Protonix) 40 Mg Tablet., 1 TAB PO DAILY, (Reported) Entered as Reported by: PRASAD HARPER on 01/22/13 0825 Sucralfate (Carafate) 1 Gm Tab, 1 GM PO TID, (Reported) Entered as Reported by: PRASAD HARPER on 01/22/13 0825 Past Lbqxmvh-Kubonv-Arbxmh Hx Patient Social History Smoking Status: Unknown if Ever Smoked Substance type: Marijuana Surgeries History of Surgeries: Yes (right hemicolectomy) Surgeries: Appendectomy, Gallbladder, Nephrectomy Respiratory History of Respiratory Disorde: No Cardiovascular History of Cardiac Disorders: Yes Cardiac Disorders: Hypertension, Pericarditis Neurological History of Neurological Disord: No Genitourinary History of Genitourinary Disor: No Gastrointestinal History of Gastrointestinal Di: Yes (CKD - GFR 30 in 2018) Gastrointestinal Disorders: Gastroesophageal Reflux, Harley's Esophagus, Gall Bladder Disease Musculoskeletal History of Musculoskeletal Dis: No Endocrine History of Endocrine Disorders: No HEENT History of HEENT Disorders: No Loss of Vision: Denies Hearing Impairment: Denies Cancer History of Cancer: Yes Cancer: Colon (neuroendocrine - appendix), Kidney (renal cell carcinoma) Psychosocial History of Psychiatric Problem: No Family Medical History Significant Family History: Heart Disease, Cancer (skin cancer - father), Diabetes (brother), Hypertension (father), Psychiatric Problems (MS - mom; parkinsons - brother), Other Conditions/Hx (diverticulitis - brother/sister) Review of Systems-General Constitutional: No chills, No diaphoresis; dizziness; No fever; weakness EENTM: blurred vision; No hearing loss, No ear pain, No hoarseness Respiratory: No cough; dyspnea on exertion; No hemoptysis; short of breath Cardiovascular: chest pain; No edema; Hx of Intervention; No palpitations Gastrointestinal: No abdominal pain, No constipation; diarrhea; No hematemesis, No jaundice; loss of appetite; No melena, No nausea, No vomiting Genitourinary: No decreased output, No discharge, No frequency Musculoskeletal: back pain (L neck pain); No joint pain, No joint swelling, No muscle stiffness Skin: No lesions, No lumps, No rash Psychiatric/Neurological: Denies Anxiety, Denies Depressed; Headache; Denies Paresthesia, Denies Tingling, Denies Tremors, Denies Weakness Physical Exam-General Problems Physical Exam General Appearance: WD/WN, no apparent distress Eyes: Bilateral Eye PERRL, Bilateral Eye EOMI HEENT: pharynx normal; No scleral icterus (R), No scleral icterus (L); other (pale tongue) Neck: non-tender, supple Respiratory: chest non-tender, lungs clear, normal breath sounds, no respir atory distress, no accessory muscle use Cardiovascular: no murmur, tachycardia Gastrointestinal: normal bowel sounds, soft, no organomegaly, tenderness (over surgical scar) Rectal: deferred Back: no CVA tenderness, no vertebral tenderness Extremities: non-tender, no pedal edema, no calf tenderness, normal capillary refill Neurologic/Psychiatric: 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 Liquid diet only today and tomorrow, no red liquids. NPO after midnight on Saturday. Discontinue ibuprofen. Admit to hospital and give blood transfusions until above [address] discuss with Dr[address] Hughes about his previous cancer. No imaging with contrast due to CKD, may order non-contrast CT of abd/pelvis if nothing found during endoscopy. Will get consent for EGD and Colonoscopy. CXR negative for acute cardiopulm findings. Supervisory-Addendum Brief Verification & Attestation Participated in pt care: history, MDM, physical Personally performed: exam, history, MDM, supervision of care Care discussed with: Medical Student Procedures: n/a Verification and Attestation of Medical Student E/M Service A medical student performed and documented this service. I then reviewed and verified all information documented by the medical student and made modifications to such information, when appropriate. I personally performed a physical exam, medical decision making and then discussed any differences between the notes and made revisions as necessary to create one note. Polo Baca , 12/02/20 , 17:11 YOLANDA WOODY MED STUDENT Dec 02, 2020 16:06 POLO BACA DO Dec 02, 2020 17:06
[2020-12-02] MEDS ORDERED: LORazepam 0.5 MG (ATIVAN) TABLET PO PRN (16:30)
--- NOTE | 2020-12-02 16:57 | ED Chest Pain ---
General Chief Complaint: Chest Pain Stated Complaint: SEVERE ANEMIA,HX CARCINOID AND RENAL CA,CP,ACUTE O Nursing Triage Note: PT BROUGHT IN BY [facility] FROM VEHICLE WITH COMPLAINT OF CP. STATES PAIN STARTED APPROX 1 HR BEFORE EMS ARRIVAL. PT STATES HE WAS WEED EATING GRASS PRIOR TO PAIN. STATES HAS BEEN HAVING DIZZY EPISODES FOR THE LAST 8 MONTHS. Source: patient, EMS History of Present Illness Date Seen by Provider: Dec 02, 2020 Time Seen by Provider: 13:32 Initial Comments PT ARRIVES VIA EMS FROM HOME C/O MID CHEST PAIN, RADIATING TO LEFT JAW, BEGAN AROUND NOON WHILE HE WAS "WEED EATING" RATED PAIN 10/10 AT SCENE. EMS GAVE 4 BABY ASPIRIN AND NTG X 2, WITH DROP IN BP, BUT PAIN DOWN TO 7/10 ON ARRIVAL TO ER C/O SHORTNESS OF BREATH NO NAUSEA/VOMITING NO SWEATS NO SWELLING IN LEGS/ FEET PT STATES FOR THE LAST 8 MONTHS HE HAS BEEN HAVING "DIZZY SPELLS" WITH ANY EXERTION, AND GOES AWAY AT REST HAS NEVER SOUGHT CARE FOR THIS PROBLEM DENIES HISTORY OF CARDIAC PROBLEMS PT HAS HISTORY OF RENAL CANCER --S/P RIGHT PARTIAL NEPHRECTOMY PT ALSO HAS NEUROENDOCRINE / CARCINOID TUMOR AND HAD RIGHT HEMICOLECTOMY HAD SURGERIES AT [facility] PT HAS NOT FOLLOWED WITH LOCALLY, OR WITH ANY OF HIS DOCTORS AT OR [facility] FOR A FEW YEARS PT HAS NOT SEEN A PRIMARY CARE DR IN YEARS PCP: NONE ONCOLOGY: DR. PERDUE Allergies and Home Medications Allergies Coded Allergies: Penicillins (Unverified Allergy, Unknown, 05/06/06) Patient Home Medication List Home Medication List Reviewed: Yes Amlodipine Besylate (Norvasc Tablet) 10 Mg Tablet, 1 EACH PO DAILY, (Reported) Entered as Reported by: ÁNGELA ISAAC on 01/21/13 0247 Aspirin (Ecotrin) 81 Mg Tablet.dr 81 MG PO DAILY, (Reported) Entered as Reported by: PRASAD HARPER on 01/22/13 0826 Hydrocodone Bit/Acetaminophen (Lortab 7.5 Mg Tablet) 1 Each Tablet, 1 EACH PO Q6HR PRN, (Reported) Entered as Reported by: CURTIS HECTOR on 01/21/13 0521 Hyoscyamine Sulfate (Levsin) 0.125 Mg Tablet, 0.125 MG PO Q4H PRN for CRAMPS Prescribed by: NEVAEH TIERNEY on 04/08/17 0800 Ondansetron (Ondansetron Odt) 4 Mg Tab.rapdis, 4 MG PO Q6H PRN for NAUSEA/VOMITING Prescribed by: MIGUEL HAIRSTON on 09/26/16 1540 Pantoprazole Sodium (Protonix) 40 Mg Tablet.dr, 1 TAB PO DAILY, (Reported) Entered as Reported by: AME KEIM on 01/22/13 08 Sucralfate (Carafate) 1 Gm Tab, 1 GM PO TID, (Reported) Entered as Reported by: AME KEIM on 01/22/13824 Review of Systems Review of Systems Constitutional: see HPI; No chills, No diaphoresis; dizziness; No fever; weakness EENTM: No Symptoms Reported Respiratory: See HPI, Shortness of Air, SOA With Exertion Cardiovascular: See HPI, Chest Pain; Denies Edema, Denies Irregular Heart Rate; Lightheadedness; Denies Palpitations, Denies Syncope Gastrointestinal: No Symptoms Reported; Denies Abdominal Pain, Denies Nausea, Denies Vomiting Musculoskeletal: No joint pain, No joint swelling, No muscle stiffness; neck pain (RADIATION OF PAIN TO LEFT LATERAL NECKE) Skin: No lesions, No lumps, No rash Psychiatric/Neurological: See HPI, Headache; Denies Paresthesia, Denies Tingling, Denies Tremors; Weakness Endocrine: No Symptoms Reported Hematologic/Lymphatic: See HPI Past [id number]-[id number]-Domjto Hx Patient Social History Tobacco Use?: No Smoking Status: Unknown if Ever Smoked Use of E-Cig and/or Vaping dev: No Substance use?: No Alcohol Use?: No Pt feels they are or have been: No Seasonal Allergies Seasonal Allergies: No Past Medical History Surgery/Hospitalization HX: CHOLECYSTECTOMY APPENDECTOMY RIGHT PARTIAL NEPHRECTOMY RIGHT HEMICOLECTOMY CARDIAC CATH RENAL STENT Surgeries: Yes (renal stent and heart cath, R HEMICOLECTOMY, PARTIAL R NEPHRECTOMY) Appendectomy, Bowel Surgery, Cardiac, Gallbladder, Nephrectomy Respiratory: No Cardiac: Yes (Hx of pericarditis in 2002 /c heart cath) Hypertension Neurological: No Reproductive Disorders: No Genitourinary: Yes (CKD--GFR 30 IN 2018; RENAL CANCER--S/P RIGHT PARTIAL NEPHRECTOMY) Renal Failure Gastrointestinal: Yes (CARCINOID TUMOR--S/P RIGHT HEMICOLECTOMY) Harley's Esophagus Musculoskeletal: No Endocrine: No Cancer: Yes (RENAL CELL CA) Kidney Did You Recieve Any Treatments: Yes What Type of Treatment Did You: Surgical Intervention appendiceal carcinoid tumor--S/P RIGHT HEMICOLECTOMY RENAL CELL CANCER--S/P RIGHT PARTIAL NEPHRECTOMY Psychosocial: No Integumentary: No Blood Disorders: No Family Medical History Reviewed Nursing Family Hx Heart Disease, Cancer (skin cancer - father), Diabetes (brother), Hypertension (father), Psychiatric Problems (MS - mom; parkinsons - brother), Other Conditions/Hx (diverticulitis - brother/sister) Sister alive and healthy Physical Exam Vital Signs Vital Signs - First Documented 12/02/20 13:35 Temp 36.7 Pulse 140 Resp 27 B/P (MAP) 152/79 (103) Pulse Ox 100 O2 Delivery Room Air Capillary Refill : Less Than 3 Seconds Height, Weight, BMI Height: 5'10.00" Weight: 167lbs. 3.0oz. [id number]; 25.00 BMI Method:Stated General Appearance: WD/WN, Anxious, Mild Distress, Other (VERY ANXIOUS, CONSTANT MOVEMENTS OF BODY, HANDS AND FEET, THRASHING ALL OVER, MOANING LOUDLY. ) HEENT: Pale Conjunctivae (L), Pale Conjunctivae (R) Neck: Normal Inspection Respiratory: Normal Breath Sounds, No Accessory Muscle Use, No Respiratory Distress, Other (MILDLY DYSPNEIC/TACHYPNEIC) Cardiovascular: No Edema, No JVD, No Murmur, Normal Peripheral Pulses, Tachycardia (140) Gastrointestinal: Non Tender, Soft Extremity: Normal Inspection Neurologic/Psychiatric: Alert, Oriented x3, No Motor/Sensory Deficits Skin: Warm/Dry, Pallor Progress/Results/Core Measures Results/Orders Lab Results Laboratory Tests Test 12/02/20 13:41 12/02/20 14:27 Range/Units White Blood Count 7.9 4.3-11.0 10^3/uL Red Blood Count 2.81 L 4.30-5.52 10^6/uL Hemoglobin 4.2 *L 13.3-17.7 g/dL Hematocrit 17 *L 40-54 % Mean Corpuscular Volume 60 L 80-99 fL Mean Corpuscular Hemoglobin 15 L 25-34 pg Mean Corpuscular Hemoglobin Concent 25 L 32-36 g/dL Red Cell Distribution Width 22.3 H 10.0-14.5 % Platelet Count 403 H 130-400 10^3/uL Mean Platelet Volume 9.7 9.0-12.2 fL Immature Granulocyte % (Auto) 0 % Neutrophils (%) (Auto) 67 42-75 % Lymphocytes (%) (Auto) 22 12-44 % Monocytes (%) (Auto) 10 0-12 % Eosinophils (%) (Auto) 1 0-10 % Basophils (%) (Auto) 0 0-10 % Neutrophils # (Auto) 5.3 1.8-7.8 10^3/uL Lymphocytes # (Auto) 1.7 1.0-4.0 10^3/uL Monocytes # (Auto) 0.8 0.0-1.0 10^3/uL Eosinophils # (Auto) 0.1 0.0-0.3 10^3/uL Basophils # (Auto) 0.0 0.0-0.1 10^3/uL Immature Granulocyte # (Auto) 0.0 0.0-0.1 10^3/uL Prothrombin Time 14.1 12.2-14.7 SEC INR Comment 1.1 0.8-1.4 Activated Partial Thromboplast Time 28 24-35 SEC Sodium Level 137 135-145 MMOL/L Potassium Level 3.6 3.6-5.0 MMOL/L Chloride Level 105 98-107 MMOL/L Carbon Dioxide Level 14 L 21-32 MMOL/L Anion Gap 18 H 5-14 MMOL/L Blood Urea Nitrogen 22 H 7-18 MG/DL Creatinine 2.41 H 0.60-1.30 MG/DL Estimat Glomerular Filtration Rate 28 BUN/Creatinine Ratio 9 Glucose Level 162 H 70-105 MG/DL Calcium Level 9.5 8.5-10.1 MG/DL Corrected Calcium 9.6 8.5-10.1 MG/DL Magnesium Level 1.6 1.6-2.4 MG/DL Total Bilirubin 0.4 0.1-1.0 MG/DL Aspartate Amino Transf (AST/SGOT) 17 5-34 U/L Alanine Aminotransferase (ALT/SGPT) 9 0-55 U/L Alkaline Phosphatase 64 40-136 U/L Total Creatine Kinase 79 30-200 U/L Creatine Kinase MB 1.0 <6.6 NG/ML Myoglobin 85.8 10.0-92.0 NG/ML Troponin I 0.038 H <0.028 NG/ML B-Type Natriuretic Peptide 191.0 H <100.0 PG/ML Total Protein 7.5 6.4-8.2 GM/DL Albumin 3.9 3.2-4.5 GM/DL Amylase Level 125 25-125 U/L Lipase 135 H 8-78 U/L TSH [place] Testing 0.74 0.35-4.94 UIU/ML Serum Alcohol < 10 <10 MG/DL Urine Color YELLOW Urine Clarity CLEAR Urine pH 6.0 5-9 Urine Specific [place] <=1.005 1.016-1.022 Urine Protein NEGATIVE NEGATIVE Urine Glucose (UA) NEGATIVE NEGATIVE Urine Ketones NEGATIVE NEGATIVE Urine Nitrite NEGATIVE NEGATIVE Urine Bilirubin NEGATIVE NEGATIVE Urine Urobilinogen 0.2 < = 1.0 MG/DL Urine Leukocyte Esterase NEGATIVE NEGATIVE Urine RBC (Auto) NEGATIVE NEGATIVE Urine RBC NONE /HPF Urine WBC RARE /HPF Urine Squamous Epithelial Cells RARE /HPF Urine Crystals NONE /LPF Urine Bacteria NEGATIVE /HPF Urine Casts NONE /LPF Urine Mucus NEGATIVE /LPF Urine Culture Indicated NO Urine Opiates Screen NEGATIVE NEGATIVE Urine Oxycodone Screen NEGATIVE NEGATIVE Urine Methadone Screen NEGATIVE NEGATIVE Urine Propoxyphene Screen NEGATIVE NEGATIVE Urine Barbiturates Screen NEGATIVE NEGATIVE Ur Tricyclic Antidepressants Screen NEGATIVE NEGATIVE Urine Phencyclidine Screen NEGATIVE NEGATIVE Urine Amphetamines Screen NEGATIVE NEGATIVE Urine Methamphetamines Screen NEGATIVE NEGATIVE Urine Benzodiazepines Screen NEGATIVE NEGATIVE Urine Cocaine Screen NEGATIVE NEGATIVE Urine Cannabinoids Screen POSITIVE H NEGATIVE My Orders Orders - JUSTINA GODFREY DO Cbc With Automated Diff (12/02/20 13:43) Magnesium (12/02/20 13:43) Chest 1 View, Ap/Pa Only (12/02/20 13:43) Ekg Tracing (12/02/20 13:43) Comprehensive Metabolic Panel (12/02/20 13:43) Myoglobin Serum (12/02/20 13:43) Protime With Inr (12/02/20 13:43) Partial Thromboplastin Time (12/02/20 13:43) O2 (12/02/20 13:43) Monitor-Rhythm Ecg Trace Only (12/02/20 13:43) Ed Iv/Invasive Line Start (12/02/20 13:43) Creatine Kinase (12/02/20 13:43) Creatine Kinase Mb (12/02/20 13:43) Lipase (12/02/20 13:43) Amylase (12/02/20 13:43) BNP (12/02/20 13:43) Troponin I (12/02/20 13:43) Alcohol (12/02/20 13:43) Drug Screen Stat (Urine) (12/02/20 13:43) Thyroid Analyzer (12/02/20 13:43) Ua Culture If Indicated (12/02/20 13:43) Red Cells Leukocytes Reduced (12/02/20 13:56) Type And Screen (12/02/20 13:56) Fentanyl Inj (Sublimaze Injection) (12/02/20 14:39) Vital Signs/I&O 12/02/20 13:35 Temp 36.7 Pulse 140 Resp 27 B/P (MAP) 152/79 (103) Pulse Ox 100 O2 Delivery Room Air Blood Pressure Mean: 107 Progress Progress Note : Progress Note GIVEN FENTANYL FOR PAIN WITH MUCH IMPROVEMENT IN PAIN AND PT IS MUCH CALMER NO DETERIORATION IN PT'S CONDITION DURING ER STAY Initial ECG Impression Date: Dec 02, 2020 Initial ECG Impression Time: 13:38 Initial ECG Rate: 143 Initial ECG Rhythm: S.Tach (WITH PVC'S) Diagnostic Imaging Comments CXR--PER RADIOLOGIST REPORT FINDINGS: The cardiomediastinal silhouette is unremarkable. The pulmonary vasculature is within normal limits. The lungs and pleural spaces are clear. IMPRESSION: No evidence of an acute cardiopulmonary process. Reviewed: Reviewed by Me Departure Communication (Admissions) 1440/1443--CALLED/MESSAGE LEFT AND THEN SPOKE WITH DR. CAHPMAN, HOSPITALIST, ACCEPTS PT FOR ADMIT. SHE WILL CALL DR. BACA, SURGEON FOR CONSULT 1445--SPOKE WITH DR. PERDUE FOR HEMATOLOGY/ONCOLOGY CONSULT. WILL ORDER IRON STUDIES, AND THEN TRANSFUSE. Impression Primary Impression: Severe anemia Additional Impressions: Renal failure Hx of renal cell carcinoma HX OF CARCINOID/NEUROENDOCRINE TUMOR Chest pain MILDLY ELEVATED TROPONIN Disposition: ADMITTED INPATIENT Condition: Stable Admissions Decision to Admit Reason: Admit from ER (General) Decision to Admit/Date: Dec 02, 2020 Time/Decision to Admit Time: 14:40 Departure-Patient Inst. Referrals: NO,LOCAL PHYSICIAN (PCP) Primary Care Physician JUSTINA GODFREY DO Dec 02, 2020 16:56
[2020-12-02] MEDS ORDERED: NS IV 1000 ML 1,000 ML ONE (17:05)
[2020-12-02] MEDS ORDERED: CATHETER FLUSH 10 ML SYR IV PRN (18:00)
[2020-12-02] MEDS: NS IV 1000 ML 1,000 ML IV SCH (18:06)
[2020-12-02] MEDS: fentaNYL INJ 100 MCG/2 ML AMP IV PRN ×2 (18:33→21:21)
[2020-12-03] VITALS (13 sets, daily range): BP systolic 120–159; BP diastolic 62–79
[2020-12-03] MEDS: fentaNYL INJ 100 MCG/2 ML AMP IV PRN ×6 (01:17→23:42)
[2020-12-03] MEDS: NS IV 1000 ML 1,000 ML IV SCH ×2 (03:41→08:27)
[2020-12-03 05:48] LABS: EOSINOPHILS # (AUTO) 0.2 10^3/uL (0.0-0.3); HEMATOCRIT 23 % (40-54); PLATELET COUNT 237 10^3/uL (130-400)
[2020-12-03 05:51] LABS: BASOPHILS % (AUTO) 1 % (0-10); EOSINOPHILS % (AUTO) 3 % (0-10); LYMPHOCYTES # (AUTO) 1.3 10^3/uL (1.0-4.0); LYMPHOCYTES % (AUTO) 26 % (12-44); MEAN CORPUSCULAR HEMOGLOBIN 20 pg (25-34); MEAN CORPUSCULAR HGB CONC 30 g/dL (32-36); MEAN CORPUSCULAR VOLUME 68 fL (80-99); MONOCYTES # (AUTO) 0.5 10^3/uL (0.0-1.0); MONOCYTES % (AUTO) 11 % (0-12); NEUTROPHILS # (AUTO) 2.9 10^3/uL (1.8-7.8); NEUTROPHILS % (AUTO) 59 % (42-75); WHITE BLOOD COUNT 4.9 10^3/uL (4.3-11.0)
[2020-12-03 05:52] LABS: HEMOGLOBIN 6.9 g/dL (13.3-17.7)
[2020-12-03 06:03] LABS: POTASSIUM 3.9 MMOL/L (3.6-5.0)
[2020-12-03 06:05] LABS: CALCIUM 8.6 MG/DL (8.5-10.1)
[2020-12-03 06:09] LABS: CREATININE SERUM 1.96 MG/DL (0.60-1.30)
--- NOTE | 2020-12-03 08:37 | Progress Note - Hospitalist ---
DIMITRIOS CHUNG A MED STUDENT 12/03/20 0837: Subjective HPI/CC On Admission Date Seen by Provider: Dec 03, 2020 Time Seen by Provider: 08:15 Pt is a 60 yo male who presented to the ED yesterday with fatigue and SOA that has been ongoing for 8 months. Pt has hx of renal cell carcinoma and carcinoid tumor with colon resection. Pt has not seen a physician for this in several years. Pt reports he has episodes of SOA, fatigue, leg weakness, L. sided neck weakness, blurry vision and dizziness that last several hours after exertion. During these episodes his diastolic blood pressure drops to the 40's. Pt admits to a 25lb unintentional weight loss d/t decreased appetite and abdominal pain. Pt denies dark or tarry stools, but admits to diarrhea. Subjective/Events-last exam Pt is a 60 yo male who was admitted from ED yesterday afternoon. Pt reports crushing left sided chest pain this morning that he rates 8/10. Pt reports his last meal was yesterday evening. Pt is visibly uncomfortable and holding his chest. Pt is scheduled for EGD/Colonoscopy tomorrow and will be NPO tonight. Review of Systems General: Appetite (decreased) Pulmonary: Dyspnea Cardiovascular: Chest Pain (crushing left sided) Gastrointestinal: No: Nausea, Vomiting, Diarrhea, Constipation Objective Exam Vital Signs Vital Signs Date Time Temp Pulse Resp B/P (MAP) Pulse Ox O2 Delivery O2 Flow Rate FiO2 12/03/20 07:59 36.0 73 15 152/78 (102) 100 Room Air Capillary Refill : Less Than 3 Seconds General Appearance: Moderate Distress (d/t chest pain) HEENT: PERRL/EOMI Respiratory: Chest Non Tender, No Accessory Muscle Use, No Respiratory Distress, Rhonci Cardiovascular: No Murmur, Normal Peripheral Pulses, Tachycardia Gastrointestinal: Normal Bowel Sounds, No Organomegaly, No Pulsatile Mass, Non Tender, Soft Extremity: Normal Capillary Refill, Normal Inspection, No Pedal Edema Neurologic/Psychiatric: Alert, Oriented x3, No Motor/Sensory Deficits, Normal Mood/Affect, tufting creeler II-XII Norm as Tested Skin: Warm/Dry, Pallor Results/Procedures Lab Laboratory Tests 12/02/20 13:41 12/02/20 21:59 12/03/20 05:19 Patient resulted labs reviewed. Assessment/Plan Assessment and Plan Assess & Plan/Chief Complaint Anemia -H&H 6.9 and 23, improved from yesterday -Last bag of blood running now History of colon cancer -Consulted GI for possible GI bleed. -FOBT negative -EGD/Colonoscopy scheduled for tomorrow -NPO at midnight Elevated troponin and BNP -Consulted Dr. Day, instructional facilitator -EKG and repeat troponins ordered -Will f/u with EKG, may start lasix IV 20mg q24 for pulmonary edema -IV fentanyl for chest pain -Pts pain improved to 2/10 upon administration CKD -BUN 17 Cr 1.96, improved from yesterday Clinical Quality Measures AMI/AHF: ASA po Prior to arrival: Yes KIKA BUCKLEY MD 12/03/20 1105: Assessment/Plan Assessment and Plan Assess & Plan/Chief Complaint Hgb improving. Getting 4th unit of pRBCs during exam. He did developed chest pain again this morning. EKG and troponin ordered. Discusse with Dr Day who will see patient in consultation. Continue on telemetry. Surgery planning to scope tomorrow. Prep ordered. Ckd improving and back to nearly baseline from 3 years ago. Satting well but some swelling in legs. Consider lasix if SOB/hypoxia.. Supervisory-Addendum Brief Verification & Attestation Participated in pt care: history, MDM, physical Personally performed: exam, history, MDM, supervision of care Care discussed with: Medical Student Procedures: n/a Results interpretation: Verified all documentation Verification and Attestation of Medical Student E/M Service A medical student performed and documented this service in my presence. I reviewed and verified all information documented by the medical student and made modifications to such information, when appropriate. I personally performed the physical exam and medical decision making. Kika Buckley, Dec 03, 2020,11:04 DIMITRIOS CHUNG MED STUDENT Dec 03, 2020 08:37 KIKA BUCKLEY MD Dec 03, 2020 11:05
--- NOTE | 2020-12-03 09:00 | Progress Note - Surgery ---
YOLANDA WOODY MED STUDENT 12/03/20 0900: Subjective Date Seen by a Provider: Dec 03, 2020 Time Seen by a Provider: 07:45 Subjective/Events-last exam surgery consult for: anemia Patient is resting comfortably in bed. He complains of chest pressure this morning, headache, but states he feels stronger today than yesterday after some blood transfusions. He denies SOB or blurred vision. He was given pain medication and the hospitalist ordered an EKG for his chest pressure. He had a BM this morning. He is tolerating ambulation and a liquid diet. He denies difficulty with urination. Review of Systems General: No Night Sweats, No Fatigue HEENT: Head Aches; No Visual Changes Pulmonary: Dyspnea; No Cough Cardiovascular: Chest Pain Gastrointestinal: No: Nausea, Vomiting, Abdominal Pain Genitourinary: No Dysuria, No Frequency Neurological: No: Weakness, Numbness Objective Exam Vital Signs Date Time Temp Pulse Resp B/P (MAP) Pulse Ox O2 Delivery O2 Flow Rate FiO2 12/03/20 07:59 36.0 73 15 152/78 (102) 100 Room Air 12/03/20 07:00 75 12/03/20 06:31 36.2 66 15 159/75 100 Room Air 12/03/20 06:14 36.0 67 16 147/76 99 Room Air 12/03/20 03:42 36.0 69 20 146/74 (98) 100 Room Air 12/03/20 02:40 36.0 67 16 144/73 99 Room Air 12/03/20 01:00 72 12/03/20 00:36 36.2 75 18 137/68 100 Room Air 12/03/20 00:24 36.1 74 16 135/71 (92) 100 Room Air 12/03/20 00:15 35.8 75 16 136/70 100 Room Air 12/02/20 20:54 Room Air 12/02/20 19:36 36.1 86 16 153/76 100 Room Air 12/02/20 19:18 37.2 97 16 159/87 (111) 99 Room Air 12/02/20 19:00 93 12/02/20 17:39 36.4 95 15 150/69 95 Room Air 12/02/20 17:13 93 12/02/20 17:00 Room Air 12/02/20 16:43 36.7 96 22 168/92 99 Room Air 12/02/20 16:35 36.7 90 12 159/81 100 12/02/20 16:04 36.8 103 21 172/97 100 Room Air 12/02/20 15:33 36.5 101 15 169/83 100 Room Air 12/02/20 15:25 36.6 98 19 176/82 100 12/02/20 13:35 36.7 140 27 152/79 (103) 100 Room Air I & O 12/03/20 07:00 Intake Total 3547 ml Output Total 2700 ml Balance 847 ml Capillary Refill : Less Than 3 Seconds General Appearance: Mild Distress HEENT: PERRL/EOMI Neck: Normal Inspection Respiratory: Lungs Clear, Normal Breath Sounds, No Accessory Muscle Use, No Respiratory Distress, Rhonci Cardiovascular: No Murmur, Normal Peripheral Pulses, Tachycardia Gastrointestinal: normal bowel sounds, soft, no organomegaly, tenderness (over surgical scar) Extremity: Normal Capillary Refill, Normal Inspection, No Pedal Edema Neurologic/Psychiatric: Alert, Oriented x3, No Motor/Sensory Deficits, Normal Mood/Affect, fibreglass laminator II-XII Norm as Tested Skin: Warm/Dry, Pallor Results Lab Laboratory Tests 12/02/20 13:41: White Blood Count 7.9, Red Blood Count 2.81L, Hemoglobin 4.2*L, Hematocrit 17*L, Mean Corpuscular Volume 60L, Mean Corpuscular Hemoglobin 15L, Mean Corpuscular Hemoglobin Concent 25L, Red Cell Distribution Width 22.3H, Platelet Count 403H, Mean Platelet Volume 9.7, Immature Granulocyte % (Auto) 0, Neutrophils (%) (Auto) 67, Lymphocytes (%) (Auto) 22, Monocytes (%) (Auto) 10, Eosinophils (%) (Auto) 1, Basophils (%) (Auto) 0, Neutrophils # (Auto) 5.3, Lymphocytes # (Auto) 1.7, Monocytes # (Auto) 0.8, Eosinophils # (Auto) 0.1, Basophils # (Auto) 0.0, Immature Granulocyte # (Auto) 0.0, Prothrombin Time 14.1, INR Comment 1.1, Activated Partial Thromboplast Time 28, Sodium Level 137, Potassium Level 3.6, Chloride Level 105, Carbon Dioxide Level 14L, Anion Gap 18H, Blood Urea Nitrogen 22H, Creatinine 2.41H, Estimat Glomerular Filtration Rate 28, BUN/Creatinine Ratio 9, Glucose Level 162H, Calcium Level 9.5, Corrected Calcium 9.6, Magnesium Level 1.6, Iron Level 13L, Total Iron Binding Capacity 383H, Unsaturated Iron Binding Capacity 370, Transferrin % Saturation 3L, Ferritin 2.6L, Total Bilirubin 0.4, Aspartate Amino Transf (AST/SGOT) 17, Alanine Aminotransferase (ALT/SGPT) 9, Alkaline Phosphatase 64, Total Creatine Kinase 79, Creatine Kinase MB 1.0, Myoglobin 85.8, Troponin I 0.038H, B-Type Natriuretic Peptide 191.0H, Total Protein 7.5, Albumin 3.9, Amylase Level 125, Lipase 135H, TSH [place] Testing 0.74, Serum Alcohol < 10 12/02/20 14:27: Urine Color YELLOW, Urine Clarity CLEAR, Urine pH 6.0, Urine Specific [place] <=1.005, Urine Protein NEGATIVE, Urine Glucose (UA) NEGATIVE, Urine Ketones NEGATIVE, Urine Nitrite NEGATIVE, Urine Bilirubin NEGATIVE, Urine Urobilinogen 0.2, Urine Leukocyte Esterase NEGATIVE, Urine RBC (Auto) NEGATIVE, Urine RBC NO NE, Urine WBC RARE, Urine Squamous Epithelial Cells RARE, Urine Crystals NONE, Urine Bacteria NEGATIVE, Urine Casts NONE, Urine Mucus NEGATIVE, Urine Culture Indicated NO, Urine Opiates Screen NEGATIVE, Urine Oxycodone Screen NEGATIVE, Urine Methadone Screen NEGATIVE, Urine Propoxyphene Screen NEGATIVE, Urine Barbiturates Screen NEGATIVE, Ur Tricyclic Antidepressants Screen NEGATIVE, Urine Phencyclidine Screen NEGATIVE, Urine Amphetamines Screen NEGATIVE, Urine Methamphetamines Screen NEGATIVE, Urine Benzodiazepines Screen NEGATIVE, Urine Cocaine Screen NEGATIVE, Urine Cannabinoids Screen POSITIVEH 12/02/20 21:59: Hemoglobin 6.0#*L, Hematocrit 21L 12/03/20 05:15: SARS-CoV-2 RNA (RT-PCR) Not Detected 12/03/20 05:19: White Blood Count 4.9, Red Blood Count 3.39L, Hemoglobin 6.9*L, Hematocrit 23L, Mean Corpuscular Volume 68L, Mean Corpuscular Hemoglobin 20L, Mean Corpuscular Hemoglobin Concent 30L, Red Cell Distribution Width 27.2H, Platelet Count 237, Mean Platelet Volume 10.0, Immature Granulocyte % (Auto) 0, Neutrophils (%) (Auto) 59, Lymphocytes (%) (Auto) 26, Monocytes (%) (Auto) 11, Eosinophils (%) (Auto) 3, Basophils (%) (Auto) 1, Neutrophils # (Auto) 2.9, Lymphocytes # (Auto) 1.3, Monocytes # (Auto) 0.5, Eosinophils # (Auto) 0.2, Basophils # (Auto) 0.0, Immature Granulocyte # (Auto) 0.0, Percent Immature Platelet Fraction 2.5, Sodium Level 138, Potassium Level 3.9, Chloride Level 107, Carbon Dioxide Level 20L, Anion Gap 11, Blood Urea Nitrogen 17, Creatinine 1.96H, Estimat Glomerular Filtration Rate 35, BUN/Creatinine Ratio 9, Glucose Level 88, Calcium Level 8.6, Troponin I 0.142H 12/03/20 06:45: Stool Occult Blood Immunoassay NEGATIVE Assessment/Plan Assessment/Plan Assessment/Plan microcytic anemia SOB elevated troponin, elevated BNP hx of HTN, Harley's esophagus, colon resection, CKD (GFR 28) Plan is to do prep today and plan for EGD and colonoscopy on Saturday. Liquid diet only today, no red liquids. NPO after midnight tonight. Discontinue ibuprofen. Continue blood transfusions until above 7 Hgb. No imaging with contrast due to CKD, may order non-contrast CT of abd/pelvis if nothing found during endoscopy. Will get consent for EGD and Colonoscopy. CXR negative for acute cardiopulm findings. Hospitalist is consulting cardiology for CP and obtaining EKG. Clinical Quality Measures AMI/AHF: ASA po Prior to arrival: Yes XAVIER CARNES DO 12/03/20 1339: Subjective Time Seen by a Provider: 10:43 Subjective/Events-last exam Pt seen and examined, no new complaints. Feels a little stronger today. Review of Systems General: No Night Sweats; Fatigue HEENT: Head Aches; No Visual Changes Pulmonary: Dyspnea; No Cough Cardiovascular: Chest Pain Gastrointestinal: No: Nausea, Vomiting, Abdominal Pain Genitourinary: No Dysuria, No Frequency Objective Exam General Appearance: No Apparent Distress, WD/WN HEENT: PERRL/EOMI Respiratory: Lungs Clear, Normal Breath Sounds, No Accessory Muscle Use, No Respiratory Distress Cardiovascular: No Murmur, Tachycardia Gastrointestinal: normal bowel sounds, soft, no organomegaly, tenderness (over surgical scar) Neurologic/Psychiatric: Alert, Oriented x3, Normal Mood/Affect, fibreglass laminator II-XII Norm as Tested Assessment/Plan Assessment/Plan Assessment/Plan microcytic anemia SOB elevated troponin, elevated BNP hx of HTN, Harley's esophagus, colon resection, CKD (GFR 28) Plan is to do prep today and plan for EGD and colonoscopy on Saturday. Liquid diet only today, no red liquids. NPO after midnight tonight. Discontinue ibuprofen. Continue blood transfusions until above 7 Hgb. No imaging with contrast due to CKD, may order non-contrast CT of abd/pelvis if nothing found during endoscopy. Will get consent for EGD and Colonoscopy. CXR negative for acute cardiopulm findings. Cardiology cleared pt. Supervisory-Addendum Brief Verification & Attestation Participated in pt care: history, MDM, physical Personally performed: exam, history, MDM, supervision of care Care discussed with: Medical Student Procedures: n/a Verification and Attestation of Medical Student E/M Service A medical student performed and documented this service. I then reviewed and verified all information documented by the medical student and made modifi cations to such information, when appropriate. I personally performed a physical exam, medical decision making and then discussed any differences between the notes and made revisions as necessary to create one note. Xavier Carnes , 12/03/20 , 13:39 YOLANDA WOODY MED STUDENT Dec 03, 2020 09:00 XAVIER CARNES DO Dec 03, 2020 13:39
[2020-12-03 09:03] LABS: CHOLESTEROL 90 MG/DL (< 200); HDL CHOLESTEROL 29 MG/DL (40-60); TRIGLYCERIDES 73 MG/DL (<150); VLDL CHOLESTEROL 15 MG/DL (5-40)
[2020-12-03] MEDS ORDERED: NITROGLYCERIN 0.4 MG SL TABS BTL 25'S SL PRN (09:15)
--- NOTE | 2020-12-03 09:24 | Consultation-Cardiology ---
HPI-Cardiology Cardiology Consultation: Date of Consultation 12/03/2020 Date of Admission 12/02/2020 Attending Physician Kika Buckley MD Admitting Physician No,Local Physician Consulting Physician TREVOR JONES JR, MD HPI: Time Seen by a Provider: 09:20 Chief Complaint: Reason for consultation: Chest pain and abnormal troponin level. I had the pleasure of seeing Parth on the cardiac stepdown unit at [facility] this morning. Yesterday he presented to the emergency room due to a severe lightheaded spell associated with palpitations and left-sided chest discomfort along with shortness of breath. His initial troponin was borderline elevated and his electrocardiogram showed ST depression but no signs of ST elevation. He was also found to have severe anemia. He was initially felt to have a possible type II non-ST elevation myocardial infarction related to severe anemia. He has been treated with blood transfusions. Then this morning while he was lying in bed he developed recurrent left-sided chest discomfort associated with shortness of breath. He told the nurse who then alerted the hospital doctor who requested a cardiology consultation. He is waiting to be seen by surgery in regards to the severe anemia. This morning his chest discomfort resolved with intravenous fentanyl. He tells me he has been getting chest discomfort off and on all evening. This usually resolves with fentanyl. He has not been given any nitroglycerin. He has no known history of coronary artery disease or previous myocardial infarction. Upon further reviewing his history, he states that over the past one or 2 months he has been having intermittent lightheaded spells. On one occasion 1 month ago he actually passed out. Before he passed out he was able to get himself down onto the ground to his knees and then he passed out and fell the rest of the way down to the ground. He was only unconscious for a few seconds. He did not seek medical attention. He has had at least several of t hese episodes over the past couple of months. Yesterday his symptoms were so severe that he was not able to stand up due to the profound weakness in his legs. He did not actually have syncope yesterday. He denies any nausea, vomiting, hematemesis hematochezia, or melena. He denies abdominal pain, fever, chills. When he is not having the chest discomfort, he is not usually short of breath. He denies paroxysmal nocturnal dyspnea, orthopnea, or lower extremity edema. He does not take any medications at home. He is a non-smoker. Certain portions of this document may have been dictated utilizing voice recognition technology. Inherent to this technology, typographical and grammatical errors may exist. As much as I am diligent to identify and correct these mistakes, some errors may remain in the document. Review of Systems-Cardiology Review of Systems Other comments Review of 10 organ systems is as per the history of present illness, otherwise negative. 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 Family Medical History Family Medical History: The patient does not know of any family history of premature coronary artery disease. Allergies and Home Medications Allergies Coded Allergies: Penicillins (Unverified Allergy, Unknown, 05/06/06) Patient Home Medication List Home Medication List Reviewed: Yes Discontinued Medications Amlodipine Besylate (Norvasc Tablet) 10 Mg Tablet, 1 EACH PO DAILY, (Reported) Discontinued Reason: No Longer Taking Entered as Reported by: ÁNGELA ISAAC on 01/21/13 0247 Last Action: Discontinued Aspirin (Ecotrin) 81 Mg Tablet.dr, 81 MG PO DAILY, (Reported) Discontinued Reason: No Longer Taking Entered as Reported by: PRASAD HARPER on 01/22/13 0826 Last Action: Discontinued Hydrocodone Bit/Acetaminophen (Lortab 7.5 Mg Tablet) 1 Each Tablet, 1 EACH PO Q6HR PRN, (Reported) Discontinued Reason: No Longer Taking Entered as Reported by: CURTIS HECTOR on 01/21/13 0521 Last Action: Discontinued Hyoscyamine Sulfate (Levsin) 0.125 Mg Tablet, 0.125 MG PO Q4H PRN for CRAMPS Discontinued Reason: No Longer Taking Prescribed by: NEVAEH TIERNEY on 04/08/17 0800 Last Action: Discontinued Ondansetron (Ondansetron Odt) 4 Mg Tab.rapdis, 4 MG PO Q6H PRN for NAUSEA/VOMITING Discontinued Reason: No Longer Taking Prescribed by: PARTH HAIRSTON on 09/26/16 1540 Last Action: Discontinued Pantoprazole Sodium (Protonix) 40 Mg Tablet.dr, 1 TAB PO DAILY, (Reported) Discontinued Reason: No Longer Taking Entered as Reported by: PRASAD HARPER on 01/22/13824 Last Action: Discontinued Sucralfate (Carafate) 1 Gm Tab, 1 GM PO TID, (Reported) Discontinued Reason: No Longer Taking Entered as Reported by: PRASAD HARPER on 01/22/13824 Last Action: Discontinued Exam Vital Signs Vital Signs Date Time Temp Pulse Resp B/P (MAP) Pulse Ox O2 Delivery O2 Flow Rate FiO2 12/03/20 07:59 36.0 73 15 152/78 (102) 100 Room Air Physical Exam General: Alert. No acute distress. Well nourished and appears stated age. Eye: Extraocular movements are intact. Conjunctivae are clear. There are no xanthelasma. HENT: Normocephalic. Atraumatic. Carotid pulsations 2/2 without bruits. Neck: Jugular venous pressure does not appear elevated. No thyromegaly appreciated. Respiratory: Lungs are clear to auscultation. Respirations are non-labored. Breath sounds are equal. Symmetrical chest wall expansion. Cardiovascular: Normal rate. Regular rhythm. No murmur. No gallop. Point of maximal impulse is not appear displaced. Good pulses equal in all extremities. No edema. Gastrointestinal: Soft. Normal bowel sounds. Skin: Skin turgor is normal. There is no pallor. Musculoskeletal: No kyphosis or scoliosis appreciated. Neurologic: Alert and oriented to person, place, time. Cranial nerves 3-12 appear grossly intact. The patient has good motor tone strength in the upper and lower extremities bilaterally. Psychiatric: Cooperative. Appropriate mood & affect. Labs Laboratory Tests Test 12/02/20 13:41 12/02/20 14:27 12/02/20 21:59 12/03/20 05:15 Range/Units White Blood Count 7.9 4.3-11.0 10^3/uL Red Blood Count 2.81 L 4.30-5.52 10^6/uL Hemoglobin 4.2 *L 6.0 #*L 13.3-17.7 g/dL Hematocrit 17 *L 21 L 40-54 % Mean Corpuscular Volume 60 L 80-99 fL Mean Corpuscular Hemoglobin 15 L 25-34 pg Mean Corpuscular Hemoglobin Concent 25 L 32-36 g/dL Red Cell Distribution Width 22.3 H 10.0-14.5 % Platelet Count 403 H 130-400 10^3/uL Mean Platelet Volume 9.7 9.0-12.2 fL Immature Granulocyte % (Auto) 0 % Neutrophils (%) (Auto) 67 42-75 % Lymphocytes (%) (Auto) 22 12-44 % Monocytes (%) (Auto) 10 0-12 % Eosinophils (%) (Auto) 1 0-10 % Basophils (%) (Auto) 0 0-10 % Neutrophils # (Auto) 5.3 1.8-7.8 10^3/uL Lymphocytes # (Auto) 1.7 1.0-4.0 10^3/uL Monocytes # (Auto) 0.8 0.0-1.0 10^3/uL Eosinophils # (Auto) 0.1 0.0-0.3 10^3/uL Basophils # (Auto) 0.0 0.0-0.1 10^3/uL Immature Granulocyte # (Auto) 0.0 0.0-0.1 10^3/uL Prothrombin Time 14.1 12.2-14.7 SEC INR Comment 1.1 0.8-1.4 Activated Partial Thromboplast Time 28 24-35 SEC Sodium Level 137 135-145 MMOL/L Potassium Level 3.6 3.6-5.0 MMOL/L Chloride Level 105 98-107 MMOL/L Carbon Dioxide Level 14 L 21-32 MMOL/L Anion Gap 18 H 5-14 MMOL/L Blood Urea Nitrogen 22 H 7-18 MG/DL Creatinine 2.41 H 0.60-1.30 MG/DL Estimat Glomerular Filtration Rate 28 BUN/Creatinine Ratio 9 Glucose Level 162 H 70-105 MG/DL Calcium Level 9.5 8.5-10.1 MG/DL Corrected Calcium 9.6 8.5-10.1 MG/DL Magnesium Level 1.6 1.6-2.4 MG/DL Iron Level 13 L 37-167 ug/dL Total Iron Binding Capacity 383 H 237-330 ug/dL Unsaturated Iron Binding Capacity 370 25-500 ug/dL Transferrin % Saturation 3 L 17-57 % Ferritin 2.6 L 32.0-356.0 ng/mL Total Bilirubin 0.4 0.1-1.0 MG/DL Aspartate Amino Transf (AST/SGOT) 17 5-34 U/L Alanine Aminotransferase (ALT/SGPT) 9 0-55 U/L Alkaline Phosphatase 64 40-136 U/L Total Creatine Kinase 79 30-200 U/L Creatine Kinase MB 1.0 <6.6 NG/ML Myoglobin 85.8 10.0-92.0 NG/ML Troponin I 0.038 H <0.028 NG/ML B-Type Natriuretic Peptide 191.0 H <100.0 PG/ML Total Protein 7.5 6.4-8.2 GM/DL Albumin 3.9 3.2-4.5 GM/DL Amylase Level 125 25-125 U/L Lipase 135 H 8-78 U/L TSH [place] Testing 0.74 0.35-4.94 UIU/ML Serum Alcohol < 10 <10 MG/DL Urine Color YELLOW Urine Clarity CLEAR Urine pH 6.0 5-9 Urine Specific [place] <=1.005 1.016-1.022 Urine Protein NEGATIVE NEGATIVE Urine Glucose (UA) NEGATIVE NEGATIVE Urine Ketones NEGATIVE NEGATIVE Urine Nitrite NEGATIVE NEGATIVE Urine Bilirubin NEGATIVE NEGATIVE Urine Urobilinogen 0.2 < = 1.0 MG/DL Urine Leukocyte Esterase NEGATIVE NEGATIVE Urine RBC (Auto) NEGATIVE NEGATIVE Urine RBC NONE /HPF Urine WBC RARE /HPF Urine Squamous Epithelial Cells RARE /HPF Urine Crystals NONE /LPF Urine Bacteria NEGATIVE /HPF Urine Casts NONE /LPF Urine Mucus NEGATIVE /LPF Urine Culture Indicated NO Urine Opiates Screen NEGATIVE NEGATIVE Urine Oxycodone Screen NEGATIVE NEGATIVE Urine Methadone Screen NEGATIVE NEGATIVE Urine Propoxyphene Screen NEGATIVE NEGATIVE Urine Barbiturates Screen NEGATIVE NEGATIVE Ur Tricyclic Antidepressants Screen NEGATIVE NEGATIVE Urine Phencyclidine Screen NEGATIVE NEGATIVE Urine Amphetamines Screen NEGATIVE NEGATIVE Urine Methamphetamines Screen NEGATIVE NEGATIVE Urine Benzodiazepines Screen NEGATIVE NEGATIVE Urine Cocaine Screen NEGATIVE NEGATIVE Urine Cannabinoids Screen POSITIVE H NEGATIVE SARS-CoV-2 RNA (RT-PCR) Not Detected Not Detecte Test 12/03/20 05:19 12/03/20 06:45 Range/Units White Blood Count 4.9 4.3-11.0 10^3/uL Red Blood Count 3.39 L 4.30-5.52 10^6/uL Hemoglobin 6.9 *L 13.3-17.7 g/dL Hematocrit 23 L 40-54 % Mean Corpuscular Volume 68 L 80-99 fL Mean Corpuscular Hemoglobin 20 L 25-34 pg Mean Corpuscular Hemoglobin Concent 30 L 32-36 g/dL Red Cell Distribution Width 27.2 H 10.0-14.5 % Platelet Count 237 130-400 10^3/uL Mean Platelet Volume 10.0 9.0-12.2 fL Immature Granulocyte % (Auto) 0 % Neutrophils (%) (Auto) 59 42-75 % Lymphocytes (%) (Auto) 26 12-44 % Monocytes (%) (Auto) 11 0-12 % Eosinophils (%) (Auto) 3 0-10 % Basophils (%) (Auto) 1 0-10 % Neutrophils # (Auto) 2.9 1.8-7.8 10^3/uL Lymphocytes # (Auto) 1.3 1.0-4.0 10^3/uL Monocytes # (Auto) 0.5 0.0-1.0 10^3/uL Eosinophils # (Auto) 0.2 0.0-0.3 10^3/uL Basophils # (Auto) 0.0 0.0-0.1 10^3/uL Immature Granulocyte # (Auto) 0.0 0.0-0.1 10^3/uL Percent Immature Platelet Fraction 2.5 0.0-7.6 % Sodium Level 138 135-145 MMOL/L Potassium Level 3.9 3.6-5.0 MMOL/L Chloride Level 107 98-107 MMOL/L Carbon Dioxide Level 20 L 21-32 MMOL/L Anion Gap 11 5-14 MMOL/L Blood Urea Nitrogen 17 7-18 MG/DL Creatinine 1.96 H 0.60-1.30 MG/DL Estimat Glomerular Filtration Rate 35 BUN/Creatinine Ratio 9 Glucose Level 88 70-105 MG/DL Calcium Level 8.6 8.5-10.1 MG/DL Troponin I 0.142 H <0.028 NG/ML Triglycerides Level 73 <150 MG/DL Cholesterol Level 90 < 200 MG/DL LDL Cholesterol Direct 55 1-129 MG/DL VLDL Cholesterol 15 5-40 MG/DL HDL Cholesterol 29 L 40-60 MG/DL Stool Occult Blood Immunoassay NEGATIVE NEGATIVE ECG Impression ECG Comment Electrocardiogram from admission on 12/02/2020 shows sinus tachycardia at a heart rate of 143 bpm with occasional premature ventricular complexes and nonspecific anterolateral ST depression. Electrocardiogram from this morning (12/03/2020) shows sinus rhythm at a heart rate of 65 bpm with resolution of the ST changes. Diagnosis/Problems Diagnosis/Problems (1) Chest pain Status: Acute Assessment & Plan: Exact etiology unclear. He has not been vomiting and does not take any regular medications at home other than occasional Tylenol or Advil for pain. His troponin levels are rising and he had nonspecific ST depression on his electrocardiogram yesterday which has now resolved. All of these findings are concerning for possible type I non-ST elevation myocardial infarction. However, in light of the severe anemia that is yet to be diagnosed in terms of the etiology, he is not an ideal candidate for an invasive cardiac evaluation. I have ordered sublingual nitroglycerin for the patient in the event he has recurrent chest discomfort. I will start him on empiric therapy with statin medication. I will also add low-dose beta-kita. I will hold off on giving him aspirin until we are certain that his anemia has stabilized. If he continues to have ongoing chest discomfort and in particular associated with dynamic electrocardiogram changes, then we may not have no choice but to consider urgent cardiac catheterization. I have asked the patient's nurse to keep him n.p.o. in case he does need a cardiac catheterization. (2) NSTEMI (non-ST elevated myocardial infarction) Assessment & Plan: He is having a probable non-ST elevation myocardial infarc tion but unclear whether this is a type I or type II non-ST elevation myocardial infarction or possibly a combination of both. We will continue to trend troponin levels. We will proceed as above. (3) Abnormal ECG Assessment & Plan: As above, he has had some dynamic electrocardiogram changes. If he has ongoing episodes of chest discomfort, he will need repeat electrocardiograms (4) Syncope Assessment & Plan: Etiology unclear. There is no evidence of [id number], Brugada syndrome, or prolonged or short QT on his resting electrocardiogram. I suspect these episodes may have been due to the profound anemia. (5) Severe anemia Status: Acute Assessment & Plan: His hemoglobin has improved with blood transfusions. A surgery consultation has been requested for consideration of endoscopy. TREVOR JONES JR, MD Dec 03, 2020 09:24
[2020-12-03] MEDS ORDERED: HYDROCORTISONE 100 MG/2 ML (Solu-CORTEF) VIAL IV PRN (12:00)
[2020-12-03] MEDS ORDERED: IRON DEXTRAN INJECTION 25 MG in NS (IVPB) 5.75 ML IV ONE (12:00)
[2020-12-03] MEDS ORDERED: BISACODYL 5 MG (DULCOLAX) TABLET PO NR ×2 (12:00→15:00)
[2020-12-03] MEDS ORDERED: IRON DEXTRAN INJECTION 1,000 MG in NS (IVPB) 250 ML IV ONE (12:00)
[2020-12-03] MEDS ORDERED: diphenhydrAMINE 50 MG/ML INJ (BENADRYL) IV PRN (12:00)
[2020-12-03] MEDS ORDERED: EPINEPHrine INJECTION 1 MG/ML AMP IM PRN (12:00)
[2020-12-03] MEDS ORDERED: RT-ALBUTEROL SULF 2.5 MG/3 ML PRE-MIX VIAL IH PRN (12:00)
[2020-12-03] MEDS: NS IV 500 ML 500 ML IV SCH (12:40)
--- NOTE | 2020-12-03 12:51 | CONSULTATION REPORT ---
DATE OF SERVICE: 12/03/2020 The patient is admitted to room 507. CONSULTING PHYSICIAN: Kika Buckley MD PRIMARY PHYSICIAN: Dr. Yosvany Srivastava. IMPRESSION: 1. Significant, symptomatic microcytic anemia. 2. History of Harley's esophagus, acid peptic symptoms and intermittent melena over a year or more. 3. Chronic kidney disease, stage III to IV. 4. 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 5. Status post right hemicolectomy in 10/2013 along with cholecystectomy with no residual disease. 6. 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 RECOMMENDATIONS: 1. Agree with PRBC transfusion because of the significant symptoms related to anemia. 2. Agree with endoscopic evaluation, especially EGD since he has history of Harley's esophagus, acid peptic symptoms and intermittent melena. Would also recommend colonoscopy at the same time. 3. Iron studies showing significant iron deficiency. The patient may benefit from parenteral iron therapy. 4. Once he is stable from his current symptoms, he will need CT scans of the chest, abdomen and pelvis without contrast for restaging and to rule out recurrence of either of the malignancies. 5. We will follow the patient with you. BRIEF HISTORY: The patient is a 60-year-old male was admitted to the hospital with complaints of shortness of breath and blacking out spells along with dizziness over the past few months. His symptoms continued to worsen until he could not stay at home and was brought to the emergency room for further evaluation. He has not had a follow up with any physicians for the past few years. He complained of intermittent diarrhea with stools alternating between brown to dark for at least more than a year. He also complained of increased acid peptic symptoms and has been using [id number] proton pump inhibitors to control this. He denied any kera hematochezia. No other bleeding from anywhere. He complained of palpitations, chest discomfort, etc. with the episodes of dizziness. PAST MEDICAL HISTORY: Significant for hypertension for more than 15 years, history of stage I chromophobe type renal cell carcinoma, status post partial right nephrectomy in 04/2013, history of congenital bladder outlet obstruction requiring a urostomy placement at the age of 7 years, which had to be maintained until 13 years and has chronic kidney disease since childhood, history of stage I carcinoid of the appendix found incidentally during laparoscopic appendectomy with evidence of periappendiceal adipose tissue infiltration. The patient underwent right hemicolectomy in 10/2013 and cholecystectomy with no evidence of residual disease. He has longstanding history of gastroesophageal reflux with a diagnosis of Harley's esophagus. SOCIAL HISTORY: The patient is from his . He has two children, a son and a daughter. One child lives in [place] and the other in [place], [place]. The patient lives by himself in [place], [place]. He has no history of tobacco and no significant alcohol use. Recently, he has been using CBD gummies to stimulate his appetite. FAMILY HISTORY: Significant for maternal grandfather with prostate cancer in his early 80s. Paternal grandfather with brain cancer while in his 90s. Recently, his niece from ovarian cancer at 22 years of age. The patient is unsure if she had any genetic screening done. PHYSICAL EXAMINATION: GENERAL: Showed middle-aged male, well developed and well-nourished, awake and oriented, in mild distress due to the fatigue. VITAL SIGNS: His temperature was 36.0, pulse rate 73, respirations 16, blood pressure 152/78 and oxygen saturation of 100% on room air. HEENT: Normocephalic with male pattern baldness, extraocular muscles intact, conjunctivae pale, oral mucosa moist. NECK: Supple, with no JVD. No cervical, supraclavicular or axillary lymphadenopathy palpable. CHEST: Symmetrical. LUNGS: Clear to auscultation without wheezes or rales. CARDIOVASCULAR: Regular in rate and rhythm. No murmurs or gallops heard. ABDOMEN: Soft with mild discomfort in the epigastric area without guarding or rebound. No hepatosplenomegaly or other masses palpable. EXTREMITIES: Showed no edema. NEUROLOGIC: Grossly intact without focal motor deficits. LABORATORY DATA: CBC done yesterday at the time of admission showed WBC 7.9, hemoglobin 4.2, MCV 60, platelet count 403,000 with a neutrophil count 5.3, lymphocyte count 1.7 and monocyte count 0.8. The patient received 2 units of PRBC transfusion and hemoglobin today was 6.9. Chemistry panel done at the time of admission showed relatively normal electrolytes. BUN was 22 and creatinine 2.41 with a GFR of 28 mL per minute. Nonfasting glucose was 162. Liver function studies were within normal limits. Amylase was 125 and lipase 135. TSH was normal at 0.74. Serum iron studies showed serum iron below normal at 13, TIBC above normal at 383 and serum ferritin markedly low at 2.6, consistent with significant iron deficiency. Stools for occult blood was negative. COVID RT PCR screening was negative. Thank you for allowing me to participate in this patient's care. I will follow the patient with you and make appropriate recommendations. CC: Yosvany Srivastava MD -- requested, unable to deliver. Job ID: [id number] DocumentID: [id number] Dictated Date: 12/03/2020 11:21:10 Format Proofreader Date: 12/03/2020 12:06:10 Dictated By: ELISEO PERDUE MD MTDD
[2020-12-03] MEDS: ONDANSETRON 4 MG/2 ML (SDV) Z0FRAN IV PRN ×2 (13:59→23:36)
[2020-12-03] MEDS: PROMETHAZINE INJ 25 MG/ML (PHENERGAN) AMP IVP PRN (16:22)
[2020-12-03] MEDS ORDERED: polyethylene glycoL Bowel Prep(MIRALAX) 238 GM PO NR (18:00)
[2020-12-04] VITALS (11 sets, daily range): BP systolic 76–161; BP diastolic 40–93
[2020-12-04] MEDS: PROMETHAZINE INJ 25 MG/ML (PHENERGAN) AMP IVP PRN ×4 (00:14→20:55)
[2020-12-04] MEDS: NS IV 500 ML 500 ML IV SCH ×2 (05:09→21:00)
[2020-12-04] MEDS: fentaNYL INJ 100 MCG/2 ML AMP IV PRN ×3 (05:15→20:55)
[2020-12-04 06:22] LABS: MEAN PLATELET VOLUME 9.5 fL (9.0-12.2); WHITE BLOOD COUNT 6.9 10^3/uL (4.3-11.0)
[2020-12-04 06:39] LABS: POTASSIUM 3.8 MMOL/L (3.6-5.0)
[2020-12-04 06:40] LABS: CALCIUM 9.3 MG/DL (8.5-10.1)
[2020-12-04 06:44] LABS: CREATININE SERUM 1.95 MG/DL (0.60-1.30)
--- NOTE | 2020-12-04 08:44 | Progress Note - Surgery ---
YOLANDA WOODY MED STUDENT 12/04/20 0844: Subjective Date Seen by a Provider: Dec 04, 2020 Time Seen by a Provider: 07:00 Subjective/Events-last exam Surgery consult for anemia/SOB/CP Patient is resting comfortably in bed. He states he feels stronger and better than yesterday. He feels color has returned to his skin. He states he had a reaction after the iron infusion yesterday and developed nausea and a sharp lightning type of pain down his bones. He denies nausea and CP today. He was seen by cardiology yesterday and had a normal EKG. He completed his bowel prep and has clear and diarrhea like BM. He has no difficulty with urination. He is ambulating. Review of Systems General: No Fatigue, No Malaise HEENT: No Head Aches, No Visual Changes, No Eye Pain Pulmonary: No Dyspnea, No Cough Cardiovascular: No: Chest Pain, Palpitations Gastrointestinal: No: Nausea, Vomiting, Abdominal Pain Genitourinary: No Dysuria, No Frequency Musculoskeletal: No: neck pain, back pain Neurological: No: Weakness, Numbness Objective Exam Vital Signs Date Time Temp Pulse Resp B/P (MAP) Pulse Ox O2 Delivery O2 Flow Rate FiO2 12/04/20 08:13 98 Room Air 12/04/20 07:54 35.7 69 10 108/56 (73) 99 Room Air 12/04/20 07:00 60 12/04/20 04:00 37.4 62 10 108/56 (73) 96 Room Air 12/04/20 01:00 67 12/03/20 23:38 37.4 60 14 132/67 (88) 100 Room Air 12/03/20 20:00 100 Room Air 12/03/20 19:20 37.8 77 17 130/67 (88) 99 Room Air 12/03/20 19:00 75 12/03/20 15:15 37.7 86 23 120/62 (81) 100 Room Air 12/03/20 12:47 74 12/03/20 11:57 36.7 72 21 145/79 (101) 97 Room Air 12/03/20 09:30 36.0 73 16 152/78 100 Room Air I & O 12/04/20 07:00 Intake Total 1900 ml Output Total 1528 ml Balance 372 ml Capillary Refill : Less Than 3 Seconds General Appearance: No Apparent Distress, WD/WN HEENT: PERRL/EOMI Neck: Normal Inspection Respiratory: Lungs Clear, Normal Breath Sounds, No Accessory Muscle Use, No Respiratory Distress Cardiovascular: No Murmur, Tachycardia Gastrointestinal: normal bowel sounds, soft, no organomegaly, tenderness (over surgical scar) Extremity: Normal Capillary Refill, Normal Inspection, No Pedal Edema Neurologic/Psychiatric: Alert, Oriented x3, Normal Mood/Affect, engineer byproduct II-XII Norm as Tested Skin: Warm/Dry, Pallor Results Lab Laboratory Tests 12/03/20 10:25: Troponin I 0.120H 12/04/20 05:22: White Blood Count 6.9, Red Blood Count 4.24L, Hemoglobin 9.0#L, Hematocrit 31L, Mean Corpuscular Volume 72L, Mean Corpuscular Hemoglobin 21L, Mean Corpuscular Hemoglobin Concent 29L, Red Cell Distribution Width 28.2H, Platelet Count 210, Mean Platelet Volume 9.5, Percent Immature Platelet Fraction 3.6, Sodium Level 137, Potassium Level 3.8, Chloride Level 108H, Carbon Dioxide Level 19L, Anion Gap 10, Blood Urea Nitrogen 12, Creatinine 1.95H, Estimat Glomerular Filtration Rate 35, BUN/Creatinine Ratio 6, Glucose Level 86, Calcium Level 9.3 Assessment/Plan Assessment/Plan Assessment/Plan microcytic anemia - stable s/p 4 units of blood transfusions SOB elevated troponin, elevated BNP - trending down adverse reaction to iron infusion hx of HTN, Harley's esophagus, colon resection, CKD (GFR 28) Plan is to do EGD and colonoscopy today. Discontinue ibuprofen. Discontinue future iron infusions. Monitor hgb and blood transfusions as needed to keep hgb above 7. Hemoccult negative. No imaging with contrast due to CKD, may order non- contrast CT of abd/pelvis if nothing found during endoscopy. Will get consent for EGD and Colonoscopy. CXR negative for acute cardiopulm findings. Cardiology cleared pt. Clinical Quality Measures AMI/AHF: ASA po Prior to arrival: Yes XAVIER CARNES DO 12/04/20 1014: Subjective Time Seen by a Provider: 10:04 Subjective/Events-last exam Pt seen and examined, no new complaints and says he feels stronger. Review of Systems General: No Fatigue, No Malaise HEENT: No Head Aches, No Visual Changes, No Eye Pain Gastrointestinal: No: Nausea, Vomiting, Abdominal Pain Genitourinary: No Dysuria, No Frequency Objective Exam General Appearance: No Apparent Distress, WD/WN Respiratory: Lungs Clear, Normal Breath Sounds, No Accessory Muscle Use, No Respiratory Distress Cardiovascular: Regular Rate, Rhythm, No Murmur Gastrointestinal: soft, no organomegaly, tenderness (over surgical scar) Assessment/Plan Assessment/Plan Assessment/Plan microcytic anemia - stable s/p 4 units of blood transfusions SOB elevated troponin, elevated BNP - trending down adverse reaction to iron infusion hx of HTN, Harley's esophagus, colon resection, CKD (GFR 28) Plan is to do EGD and colonoscopy today. Discontinue ibuprofen. Discontinue future iron infusions. Monitor hgb and blood transfusions as needed to keep hgb above 7. Hemoccult negative. No imaging with contrast due to CKD, may order non- contrast CT of abd/pelvis if nothing found during endoscopy. Will get consent for EGD and Colonoscopy. CXR negative for acute cardiopulm findings. Cardiology cleared pt. Supervisory-Addendum Brief Verification & Attestation Participated in pt care: history, MDM, physical Personally performed: exam, history, MDM, supervision of care Care discussed with: Medical Student Procedures: n/a Verification and Attestation of Medical Student E/M Service A medical student performed and documented this service. I then reviewed and verified all information documented by the medical student and made modifications to such information, when appropriate. I personally performed a physical exam, medical decision making and then discussed any differences between the notes and made revisions as necessary to create one note. Xavier Carnes , 12/04/20 , 10:13 YOLANDA WOODY MED STUDENT Dec 04, 2020 08:44 XAVIER CARNES DO Dec 04, 2020 10:14
[2020-12-04] MEDS: ROSUVASTATIN 20 MG (CRESTOR) TABLET PO SCH (09:00)
--- NOTE | 2020-12-04 09:56 | Cardiology Progress Note ---
Progress Note-Cardiology Events since last exam Date Seen by Provider: Dec 04, 2020 Time Seen by Provider: 09:51 Events since last exam I am seeing him for chest pain and abnormal troponin level. He denies any f urther chest discomfort. He has received 4 blood transfusions. He received an iron transfusion and during the end of the infusion developed bone pain in his legs, back and left shoulder. This is now resolved. He denies dyspnea, palpitations, syncope, or ankle edema. Certain portions of this document may have been dictated utilizing voice recognition technology. Inherent to this technology, typographical and grammatical errors may exist. As much as I am diligent to identify and correct these mistakes, some errors may remain in the document. Vitals Last set of Vitals Signs Vital Signs 12/04/20 12/04/20 07:54 08:13 Temp 35.7 Pulse 69 Resp 10 B/P (MAP) 108/56 (73) Pulse Ox 98 O2 Delivery Room Air Labs Labs Laboratory Tests 12/04/20 05:22 Exam Vital Signs Vital Signs Date Time Temp Pulse Resp B/P (MAP) Pulse Ox O2 Delivery O2 Flow Rate FiO2 12/04/20 08:13 98 Room Air 12/04/20 07:54 35.7 69 10 108/56 (73) Physical Exam General: Alert. No acute distress. Eye: No xanthelasma. HENT: Normocephalic. Neck: Jugular venous pressure does not appear elevated. Respiratory: Lungs are clear to auscultation. Respirations are non-labored. Breath sounds are equal. Symmetrical chest wall expansion. Cardiovascular: Normal rate. Regular rhythm. No murmur. No gallop. No edema. Gastrointestinal: Soft. Normal bowel sounds. Skin: Warm. Dry. Neurologic: Alert and oriented to person, place, time. Cranial nerves 3-11 grossly intact. Psychiatric: Cooperative. Appropriate mood & affect. Labs Laboratory Tests Test 12/03/20 10:25 12/04/20 05:22 Range/Units Troponin I 0.120 H <0.028 NG/ML White Blood Count 6.9 4.3-11.0 10^3/uL Red Blood Count 4.24 L 4.30-5.52 10^6/uL Hemoglobin 9.0 #L 13.3-17.7 g/dL Hematocrit 31 L 40-54 % Mean Corpuscular Volume 72 L 80-99 fL Mean Corpuscular Hemoglobin 21 L 25-34 pg Mean Corpuscular Hemoglobin Concent 29 L 32-36 g/dL Red Cell Distribution Width 28.2 H 10.0-14.5 % Platelet Count 210 130-400 10^3/uL Mean Platelet Volume 9.5 9.0-12.2 fL Percent Immature Platelet Fraction 3.6 0.0-7.6 % Sodium Level 137 135-145 MMOL/L Potassium Level 3.8 3.6-5.0 MMOL/L Chloride Level 108 H 98-107 MMOL/L Carbon Dioxide Level 19 L 21-32 MMOL/L Anion Gap 10 5-14 MMOL/L Blood Urea Nitrogen 12 7-18 MG/DL Creatinine 1.95 H 0.60-1.30 MG/DL Estimat Glomerular Filtration Rate 35 BUN/Creatinine Ratio 6 Glucose Level 86 70-105 MG/DL Calcium Level 9.3 8.5-10.1 MG/DL Diagnosis/Problems Diagnosis/Problems (1) Chest pain Status: Acute Assessment & Plan: Exact etiology unclear. He has not been vomiting and does not take any regular medications at home other than occasional Tylenol or Advil for pain. His troponin levels had a slight rise and then fall and he had nonspecific ST depression on his electrocardiogram 2 days ago which has now resolved. I suspect he had a type II non-ST elevation myocardial infarction due to severe anemia with supply/demand mismatch. I have ordered sublingual nitroglycerin for the patient in the event he has recurrent chest discomfort. I will start him on empiric therapy with statin medication. I will also add low- dose beta-kita. I will hold off on giving him aspirin until we are certain that his anemia has stabilized. He will ultimately need a nuclear stress test. If he is still here tomorrow, we can perform the test before he is discharged. If he goes home today, I will have my office arrange for an outpatient stress test after discharge. There is no reason for him to stay in the hospital to get the stress test unless he stays overnight for other reasons. (2) NSTEMI (non-ST elevated myocardial infarction) Assessment & Plan: As above, I suspect he had a probable type II non-ST elevation myocardial infarction related to the severe anemia. We will proceed as above. (3) Abnormal ECG Assessment & Plan: He had some dynamic changes on his electrocardiogram at the time of admission that have now resolved. We will proceed as above. (4) Syncope Assessment & Plan: Etiology unclear. There is no evidence of Vsttb-Lywxhglhx-Odwvc, Brugada syndrome, or prolonged or short QT on his resting electrocardiogram. I suspect these episodes may have been due to the profound anemia. If he has recurrent episodes after discharge, we may need to consider external cardiac monitoring at that time. (5) Severe anemia Status: Acute Assessment & Plan: His hemoglobin has improved with blood transfusions. He will be undergoing endoscopy later today. TREVOR JONES JR, MD Dec 04, 2020 09:56
[2020-12-04] MEDS ORDERED: PROPOFOL INJECTION 50 ML IV ONE (10:05)
[2020-12-04] MEDS ORDERED: MIDAZOLAM 2 MG/2 ML (VERSED) VIAL ONE (10:05)
[2020-12-04] MEDS ORDERED: LACTATED RINGERS 1,000 ML IV ONE (10:50)
--- NOTE | 2020-12-04 12:29 | Anesthesia-General Post-Op ---
MAC Patient Condition Mental Status/LOC: Same as Preop Cardiovascular: Satisfactory Nausea/Vomiting: Absent Respiratory: Satisfactory Pain: Controlled Complications: Absent Post Op Complications Complications None Follow Up Care/Instructions Patient Instructions None needed. Anesthesiology Discharge Order Discharge Order Patient is doing well, no complaints, stable vital signs, no apparent adverse anesthesia problems. No complications reported per nursing. FILI MCDOWELL CRNA Dec 04, 2020 12:29
--- NOTE | 2020-12-04 12:39 | Progress Note - Hospitalist ---
Subjective HPI/CC On Admission Date Seen by Provider: Dec 04, 2020 Time Seen by Provider: 12:33 Pt is a 60 yo male who presented to the ED yesterday with fatigue and SOA that has been ongoing for 8 months. Pt has hx of renal cell carcinoma and carcinoid tumor with colon resection. Pt has not seen a physician for this in several years. Pt reports he has episodes of SOA, fatigue, leg weakness, L. sided neck weakness, blurry vision and dizziness that last several hours after exertion. During these episodes his diastolic blood pressure drops to the 40's. Pt admits to a 25lb unintentional weight loss d/t decreased appetite and abdominal pain. Pt denies dark or tarry stools, but admits to diarrhea. Subjective/Events-last exam Pt just got back from endoscopy and reports feeling ok. Was told they didn't see much on scope. No further chest pain. Objective Exam Vital Signs Vital Signs Date Time Temp Pulse Resp B/P (MAP) Pulse Ox O2 Delivery O2 Flow Rate FiO2 12/04/20 12:13 35.8 69 15 146/93 (110) 94 Room Air Capillary Refill : Less Than 3 Seconds General Appearance: No Apparent Distress, Chronically ill Respiratory: Lungs Clear, No Respiratory Distress Cardiovascular: Regular Rate, Rhythm, No Murmur Neurologic/Psychiatric: Alert, Oriented x3 Results/Procedures Lab Laboratory Tests 12/04/20 05:22 Patient resulted labs reviewed. Assessment/Plan Assessment and Plan Assess & Plan/Chief Complaint Anemia h/o appendiceal carcinoid tumor h/o renal cell carcinoma Hgb up to 9 today Trend in AM unremarkable EGD/colonoscopy Dr Sapp consulted, appreciate recs Attempted Infed but he was unable to tolerate it yesterday Chest pain NSTEMI- type II cardiology consulted, appreciate recs troponin trended down Telemetry Coreg, statin, and nitro ordered DVT ppx: SCDs only due to anemia Diagnosis/Problems Diagnosis/Problems (1) Microcytic anemia (2) Carcinoid tumor (3) Renal cell carcinoma (4) Weight loss (5) NSTEMI (non-ST elevated myocardial infarction) (6) Renal failure Status: Acute (7) Severe anemia Status: Acute (8) Hx of renal cell carcinoma Status: Acute Clinical Quality Measures AMI/AHF: ASA po Prior to arrival: Yes MAKAYLA CHAPMAN MD Dec 04, 2020 12:39
[2020-12-04] MEDS ORDERED: LACTATED RINGERS 1,000 ML IV STA (13:15)
[2020-12-04] MEDS ORDERED: HURRICAINE EXT TUBE (BENZOCAINE) XX PRN (13:15)
[2020-12-05] VITALS: BP 135/63
[2020-12-05] MEDS: fentaNYL INJ 100 MCG/2 ML AMP IV PRN ×5 (00:15→11:21)
[2020-12-05] MEDS: ONDANSETRON 4 MG/2 ML (SDV) Z0FRAN IV PRN ×2 (02:19→14:00)
[2020-12-05 04:00] VITALS: BP 130/70
[2020-12-05 05:15] LABS: HEMOGLOBIN 9.2 g/dL (13.3-17.7); MEAN PLATELET VOLUME 9.8 fL (9.0-12.2); WHITE BLOOD COUNT 11.3 10^3/uL (4.3-11.0)
[2020-12-05 05:33] LABS: POTASSIUM 3.9 MMOL/L (3.6-5.0)
[2020-12-05 05:34] LABS: CALCIUM 9.2 MG/DL (8.5-10.1)
[2020-12-05 05:39] LABS: CREATININE SERUM 2.1 MG/DL (0.60-1.30)
[2020-12-05 07:15] VITALS: BP 155/74
--- NOTE | 2020-12-05 07:55 | Progress Note - Surgery ---
YOLANDA WOODY MED STUDENT 12/05/20 0755: Subjective Date Seen by a Provider: Dec 05, 2020 Time Seen by a Provider: 07:00 Subjective/Events-last exam surgery consult for: SOB/CP/anemia Patient laying in bed in the dark covering eyes. He complains of a severe 14/10 left sided throbbing headache over his forehead and under his eye as well as nausea. He states it feels similar to the cluster headache he had in his 20s. He complains of eye sensitivity to light and blurred vision. It started last night at 11pm. He was administered fentanyl which helped his nausea and headache. He states he was dry heaving and vomited 2x last night. He denies any episodes, feels stronger, and states his skin color is better than it had been in months. He hasn't had a BM since the colonoscopy/EGD but is passing gas. No difficulty with urination. He is NPO for a cardiac stress test this morning. Review of Systems General: No Night Sweats, No Fatigue, No Malaise HEENT: Head Aches, Visual Changes; No Ear Pain Pulmonary: No Dyspnea, No Cough Cardiovascular: No: Chest Pain, Palpitations Gastrointestinal: Nausea, Vomiting; No: Abdominal Pain Genitourinary: No Dysuria, No Frequency Neurological: No: Weakness, Numbness Objective Exam Vital Signs Date Time Temp Pulse Resp B/P (MAP) Pulse Ox O2 Delivery O2 Flow Rate FiO2 12/05/20 07:15 37.2 89 15 155/74 (101) 95 Room Air 12/05/20 07:00 78 12/05/20 04:00 36.6 73 22 130/70 (90) 98 Room Air 12/05/20 01:00 71 12/05/20 00:01 37.0 12/05/20 00:00 76 20 135/63 (87) 99 Room Air 12/04/20 20:16 97 Room Air 12/04/20 20:01 36.6 12/04/20 20:00 87 22 153/78 (103) 100 Room Air 12/04/20 19:15 37.3 81 13 161/82 (108) 100 Room Air 12/04/20 19:00 87 12/04/20 15:20 37.0 84 26 136/88 (104) 100 Room Air 12/04/20 13:00 64 9/12/21 12:13 35.8 69 15 146/93 (110) 94 Room Air 12/04/20 11:45 66 16 100 Room Air 12/04/20 11:40 76 16 100 OxyMask 5 12/04/20 11:35 67 16 100 OxyMask 10 12/04/20 11:30 74 16 100 OxyMask 10 12/04/20 11:25 71 16 100 OxyMask 10 12/04/20 08:13 98 Room Air 12/04/20 07:54 35.7 69 10 108/56 (73) 99 Room Air I & O 12/05/20 07:00 Intake Total 1620 ml Output Total 2725 ml Balance -1105 ml Capillary Refill : Less Than 3 Seconds General Appearance: Chronically ill, Moderate Distress HEENT: Other (patient unable to open eyes due to light sensitivity) Neck: Normal Inspection, Non Tender, Supple Respiratory: Lungs Clear, Normal Breath Sounds, No Accessory Muscle Use, No Respiratory Distress Cardiovascular: Regular Rate, Rhythm, No Murmur Gastrointestinal: normal bowel sounds, soft, no organomegaly, tenderness (over surgical scar) Extremity: Normal Capillary Refill, Normal Inspection, No Pedal Edema Neurologic/Psychiatric: Alert, Oriented x3, No Motor/Sensory Deficits Skin: Warm/Dry, Pallor Results Lab Laboratory Tests 12/05/20 04:22: White Blood Count 11.3H, Red Blood Count 4.29L, Hemoglobin 9.2L, Hematocrit 31L, Mean Corpuscular Volume 73L, Mean Corpuscular Hemoglobin 21L, Mean Corpuscular Hemoglobin Concent 30L, Red Cell Distribution Width 29.4H, Platelet Count 214, Mean Platelet Volume 9.8, Percent Immature Platelet Fraction 4.5, Sodium Level 136, Potassium Level 3.9, Chloride Level 107, Carbon Dioxide Level 19L, Anion Gap 10, Blood Urea Nitrogen 14, Creatinine 2.10H, Estimat Glomerular Filtration Rate 32, BUN/Creatinine Ratio 7, Glucose Level 100, Calcium Level 9.2 Microbiology 12/03/20 MRSA Screen - Final, Complete MRSA not isolated Assessment/Plan Assessment/Plan Assessment/Plan microcytic anemia - stable s/p 4 units of blood transfusions SOB AMARO/N/V elevated troponin, elevated BNP - trending down adverse reaction to iron infusion hx of HTN, Harley's esophagus, colon resection, CKD (GFR 28) - EGD and colonoscopy showed no acute bleeding; bx of ulcer was taken, pending path report. - MAARO/N/V possibly concerned about adverse effect to medication such as coreg; symptoms may align with timing; consider switching medication or discontinuing. Consider CT scan of head and oxygen supplementation. Discontinue ibuprofen. Discontinue future iron infusions. - Monitor hgb and blood transfusions as needed to keep hgb above 7. Hemoccult negative. No imaging with contrast due to CKD, may order non-contrast CT of abd/pelvis if nothing found during endoscopy. CXR negative for acute cardiopulm findings. Cardiology cleared pt. Clinical Quality Measures AMI/AHF: ASA po Prior to arrival: Yes XAVIER BACA DO 12/05/20 1639: Subjective Time Seen by a Provider: 15:06 Subjective/Events-last exam Pt seen and examined, denies abdominal pain. States he had a bad night, mostly AMARO and nausea. Review of Systems General: No Night Sweats HEENT: Head Aches, Visual Changes Pulmonary: No Dyspnea, No Cough Cardiovascular: No: Chest Pain, Palpitations Gastrointestinal: Nausea, Vomiting; No: Abdominal Pain, Hematochezia Objective Exam General Appearance: Chronically ill, Mild Distress Respiratory: Lungs Clear, Normal Breath Sounds, No Accessory Muscle Use, No Respiratory Distress Cardiovascular: Regular Rate, Rhythm, No Murmur Gastrointestinal: soft, no organomegaly, tenderness (over surgical scar) Assessment/Plan Assessment/Plan Assessment/Plan microcytic anemia - stable s/p 4 units of blood transfusions SOB AMARO/N/V elevated troponin, elevated BNP - trending down adverse reaction to iron infusion hx of HTN, Harley's esophagus, colon resection, CKD (GFR 28) - EGD and colonoscopy showed no acute bleeding; bx of ulcer was taken, pending path report. Will see pt as an outpt and go over path at that time; he had no questions. - AMARO/N/V possibly concerned about adverse effect to medication such as coreg; symptoms may align with timing; consider switching medication or discontinuing. Consider CT scan of head and oxygen supplementation. Discontinue ibuprofen. Discontinue future iron infusions. - Monitor hgb and blood transfusions as needed to keep hgb above 7. Hemoccult negative. No imaging with contrast due to CKD, may order non-contrast CT of abd/ pelvis if nothing found during endoscopy. CXR negative for acute cardiopulm findings. Cardiology cleared pt. Supervisory-Addendum Brief Verification & Attestation Participated in pt care: history, MDM, physical Personally performed: exam, history, MDM, supervision of care Care discussed with: Medical Student Procedures: n/a Verification and Attestation of Medical Student E/M Service A medical student performed and documented this service. I then reviewed and verified all information documented by the medical student and made modifications to such information, when appropriate. I personally performed a physical exam, medical decision making and then discussed any differences between the notes and made revisions as necessary to create one note. Xavier Baca , 12/05/20 , 16:39 YOLANDA WOODY MED STUDENT Dec 05, 2020 07:55 XAVIER BACA DO Dec 05, 2020 16:39
[2020-12-05] MEDS: ROSUVASTATIN 20 MG (CRESTOR) TABLET PO SCH (08:00)
[2020-12-05] MEDS ORDERED: REGADENOSON 0.4 MG/5 ML SYR (LEXISCAN) IV ONE ×2 (09:38→10:00)
[2020-12-05 09:42] VITALS: BP 180/89
[2020-12-05 11:30] VITALS: BP 156/84
[2020-12-05] MEDS ORDERED: ACET-2267 PO (11:39)
[2020-12-05] MEDS ORDERED: IBUP-2473 PO (11:39)
[2020-12-05] MEDS ORDERED: ESOM20CA58 PO (11:39)
[2020-12-05] MEDS ORDERED: polyethylene glycoL POWDER 17 GM (MIRALAX) PACK PO PRN (12:00)
[2020-12-05] MEDS: PROMETHAZINE INJ 25 MG/ML (PHENERGAN) AMP IVP PRN (12:34)
[2020-12-05] MEDS ORDERED: FERROUS SULF 325 MG (IRON) TAB PO SCH (13:00)
--- NOTE | 2020-12-05 13:23 | NUCLEAR STRESS TEST ---
REGADENOSON NUCLEAR STRESS Date of procedure: 12/05/2020. Primary care provider: None Admitting physician: Kika Hutchinson MD. INDICATION: Chest pain, abnormal ECG, and abnormal troponin level. BASELINE ELECTROCARDIOGRAM: Sinus rhythm with voltage criteria for left ventricular hypertrophy. STRESS TEST PROCEDURE: The patient was administered 0.4 mg of intravenous Regadenoson. The resting heart rate was 83 bpm and the peak heart rate was 117 bpm. The resting blood pressure was 180/89 mmHg and the minimum blood pressure was 159/82 mmHg. This represents a normal heart rate and a normal blood pressure response to Regadenoson with resting hypertension. The test was stopped due to the protocol. There was no chest discomfort during the test. There were no arrhythmias during the test. There were no significant stress induced electrocardiogram changes. NUCLEAR PROCEDURE: The patient was administered 10.5 mCi of intravenous technetium 99m Tetrofosmin at rest for the rest images. The patient was subsequently administered 29.5 mCi of intravenous technetium 99m Tetrofosmin at peak stress for the stress images. Following an appropriate wait after each injection, imaging was obtained. The images were subsequently processed and reformatted in the usual views. Gated imaging was obtained. The image quality was adequate but with some degree of gastrointestinal attenuation artifact. CT attenuation correction was used as a adjunct to standard imaging. Both the corrected and uncorrected images were reviewed for interpretation. NUCLEAR RESULTS: There was normal myocardial perfusion in all segments without evidence of infarction or ischemia. There was normal left ventricular chamber size with an end-diastolic volume of 89 mL and an end-systolic volume of 31 mL. There was no evidence of transient ischemic dilatation. The TID ratio was 1.18. There was normal wall motion in all segments with a calculated ejection fraction of 65%. IMPRESSION: 1. Normal heart rate and blood pressure response to regadenoson with resting hypertension. 2. There was no chest discomfort, arrhythmias, or electrocardiogram changes during the test. 3. There was normal myocardial perfusion in all segments without evidence of infarction or ischemia. 4. There was normal wall motion in all segments with a calculated ejection fraction of 65%. Certain portions of this document may have been dictated utilizing voice recognition technology. Inherent to this technology, typographical and grammatical errors may exist. As much as I am diligent to identify and correct these mistakes, some errors may remain in the document. TREVOR JONES JR, MD Sep 13, 2021 13:23
--- NOTE | 2020-12-05 13:29 | Cardiology Progress Note ---
Progress Note-Cardiology Events since last exam Date Seen by Provider: Dec 05, 2020 Time Seen by Provider: 13:28 Events since last exam I am seeing him due to chest pain and abnormal troponin level. When I walked in his room, he was having dry heaves. His chest pain has resolved. He denies dyspnea, palpitations, syncope, or ankle edema. Certain portions of this document may have been dictated utilizing voice recognition technology. Inherent to this technology, typographical and grammatical errors may exist. As much as I am diligent to identify and correct these mistakes, some errors may remain in the document. Vitals Last set of Vitals Signs Vital Signs 12/04/20 12/05/20 11:40 11:30 Temp 36.4 Pulse 71 Resp 16 B/P (MAP) 156/84 (108) Pulse Ox 99 O2 Delivery Room Air O2 Flow Rate 5 Labs Labs Laboratory Tests 12/05/20 04:22 Exam Vital Signs Vital Signs Date Time Temp Pulse Resp B/P (MAP) Pulse Ox O2 Delivery O2 Flow Rate FiO2 12/05/20 11:30 36.4 71 16 156/84 (108) 99 Room Air 12/04/20 11:40 5 Physical Exam General: Alert. No acute distress. Eye: No xanthelasma. HENT: Normocephalic. Neck: Jugular venous pressure does not appear elevated. Respiratory: Lungs are clear to auscultation. Respirations are non-labored. Breath sounds are equal. Symmetrical chest wall expansion. Cardiovascular: Normal rate. Regular rhythm. No murmur. No gallop. No edema. Gastrointestinal: Soft. Normal bowel sounds. Skin: Warm. Dry. Neurologic: Alert and oriented to person, place, time. Cranial nerves 3-11 grossly intact. Psychiatric: Cooperative. Appropriate mood & affect. Labs Laboratory Tests Test 12/05/20 04:22 Range/Units White Blood Count 11.3 H 4.3-11.0 10^3/uL Red Blood Count 4.29 L 4.30-5.52 10^6/uL Hemoglobin 9.2 L 13.3-17.7 g/dL Hematocrit 31 L 40-54 % Mean Corpuscular Volume 73 L 80-99 fL Mean Corpuscular Hemoglobin 21 L 25-34 pg Mean Corpuscular Hemoglobin Concent 30 L 32-36 g/dL Red Cell Distribution Width 29.4 H 10.0-14.5 % Platelet Count 214 130-400 10^3/uL Mean Platelet Volume 9.8 9.0-12.2 fL Percent Immature Platelet Fraction 4.5 0.0-7.6 % Sodium Level 136 135-145 MMOL/L Potassium Level 3.9 3.6-5.0 MMOL/L Chloride Level 107 98-107 MMOL/L Carbon Dioxide Level 19 L 21-32 MMOL/L Anion Gap 10 5-14 MMOL/L Blood Urea Nitrogen 14 7-18 MG/DL Creatinine 2.10 H 0.60-1.30 MG/DL Estimat Glomerular Filtration Rate 32 BUN/Creatinine Ratio 7 Glucose Level 100 70-105 MG/DL Calcium Level 9.2 8.5-10.1 MG/DL Diagnosis/Problems Diagnosis/Problems (1) Chest pain Status: Acute Assessment & Plan: Exact etiology unclear. His troponin levels had a slight rise and then fall and he had nonspecific ST depression on his electrocardiogram 2 days ago which has now resolved. I suspect he had a type II non-ST elevation myocardial infarction due to severe anemia with supply/demand mismatch. On the other hand, I suspect he was not having chest pain related to a cardiac cause. His echocardiogram did not show any structural heart disease to explain chest pain. He had a nuclear stress test this morning that showed normal perfusion and as such, coronary ischemia is an unlikely cause of his chest discomfort. No additional cardiac testing is indicated at this point in time. I will have my office schedule him for a follow-up visit in 1 month in the event that he has ongoing chest pain after discharge. (2) NSTEMI (non-ST elevated myocardial infarction) Assessment & Plan: As above, I suspect he had a probable type II non-ST elevation myocardial infarction related to the severe anemia. However, his nuclear stress test was normal. As such, there is no indication for cardiac catheterization at this time. (3) Abnormal ECG Assessment & Plan: He had some dynamic changes on his electrocardiogram at the time of admission that have now resolved. As above, his nuclear stress test was normal. (4) Syncope Assessment & Plan: Etiology unclear. There is no evidence of Foakj-[id number]-Xkxjz, Brugada syndrome, or prolonged or short QT on his resting electrocardiogram. I suspect these episodes may have been due to the profound anemia. If he has recurrent episodes after discharge, we may need to consider external cardiac monitoring at that time. (5) Severe anemia Status: Acute Assessment & Plan: His hemoglobin has improved with blood transfusions. TREVOR JONES JR, MD Dec 05, 2020 13:29
[2020-12-05] MEDS ORDERED: ACETAMINOPHEN 500 MG TAB (TYLENOL) ONE (13:56)
[2020-12-05] MEDS ORDERED: ACETAMINOPHEN 500 MG TAB (TYLENOL) PO PRN (14:00)
[2020-12-05] MEDS ORDERED: ROSU20TA32 PO (14:00)
[2020-12-05] MEDS ORDERED: FERR325T24 PO (14:00)
[2020-12-05] MEDS ORDERED: CARV6.252 PO (14:00)
[2020-12-05] MEDS: NS IV 500 ML 500 ML IV SCH (14:47)
[2020-12-05] MEDS ORDERED: SENNA W/DOCUSATE (SENOKOT S) TABLET PO SCH (21:00)
[2020-12-05] MEDS ORDERED: DOCUSATE SODIUM 100 MG (COLACE) CAP PO SCH (21:00)
--- NOTE | 2020-12-13 15:03 | Progress Note-Post Operative ---
Post-Operative Progess Note Surgeon (s)/Foundry Technician (s) Surgeon POLO BACA DO Foundry Technician: TRISTA Billings Pre-Operative Diagnosis Anemia, Hx of Harley's, hx of colon resection Post-Operative Diagnosis Gastritis hiatal hernia esophagitis Ileum ulcer diverticula int hemorrhoids Procedure & Operative Findings Date of Procedure 12/13/20 Procedure Performed/Findings EGD with bx Colon with bx PROCEDURE NOTE: After informed consent was obtained, the patient was brought to the endoscopy suite, placed in bed in left lateral decubitus position. He was administered IV sedation by the GAMING ASSOCIATE who then monitored vitals the entire time, heart rate, blood pressure and pulse ox and the scope was inserted down the mouth through the esophagus into the stomach. On the way down, noted some mild esophagitis, took a picture, pushed into the stomach, pushed past the antrum into the duodenum. Duodenum looked good. Pulled back and did a biopsy of antrum, then retroflexed the scope, saw a small hiatal hernia, took a picture of this and then pulled the scope into the GE junction and then did a biopsy of the GE junction. Pushed the scope back into the stomach, suctioned all the air out of the stomach. At this point pulled the scope up the esophagus and out the mouth. Switched camera, switched gloves, went down below, started the colonoscopy. Pushed all the way into about 100 cm to get to the anastomosis; able to get into the ileum and saw an ulceration. Took a picture of the ulceration and then did a cold biopsy. Next slowly withdrew the scope, insufflating to look circumferentially at the ramsey starting from the anastomosis and then down the transverse colon, splenic flexure, into the descending colon, down into the sigmoid and finally into the rectum, retroflexed in the rectal vault, saw some minimal internal hemorrhoids and took a picture of this. Did find any active bleeding and no sequelae of old bleeding; no real explanation for his anemia seen in the GI tract. The patient tolerated the procedure and he recovered in the endoscopy suite. Anesthesia Type IV sedation by GAMING ASSOCIATE Estimated Blood Loss Estimated blood loss (mL): scant Specimens/Packing Specimens Removed Antral bx GE jxn bx Ileum bx POLO BACA DO Dec 13, 2020 15:03
== END 2020-12-05 18:15 | disposition home or self-care (01) | DRG 811 ==
LOC: EDUNIT# 13:35 → ER 13:37 → CSD 14:45
PROVIDERS: ADMIT Family Medicine; ATTEND Internal Medicine
PROC: 0DBB8ZX Excision of Ileum, Via Natural or Artificial Opening Endoscopic, Diagnostic (ICD-10-PCS; 2020-12-04)
PROC: 0DB78ZX Excision of Stomach, Pylorus, Via Natural or Artificial Opening Endoscopic, Diagnostic (ICD-10-PCS; principal; 2020-12-04 10:53)
PROC: 0DB48ZX Excision of Esophagogastric Junction, Via Natural or Artificial Opening Endoscopic, Diagnostic (ICD-10-PCS; 2020-12-04 10:53)
DX: D50.9 Iron deficiency anemia, unspecified (principal); I21.A1 Myocardial infarction type 2; N18.4 Chronic kidney disease, stage 4 (severe); K63.3 Ulcer of intestine; K29.70 Gastritis, unspecified, without bleeding; K20.90 Esophagitis, unspecified without bleeding; K57.90 Diverticulosis of intestine, part unspecified, without perforation or abscess without bleeding; K64.8 Other hemorrhoids; G44.40 Drug-induced headache, not elsewhere classified, not intractable; R11.2 Nausea with vomiting, unspecified; Z85.038 Personal history of other malignant neoplasm of large intestine; Z85.528 Personal history of other malignant neoplasm of kidney; T44.7X5A Adverse effect of beta-adrenoreceptor antagonists, initial encounter
CPT/HCPCS: 36415; 36430; 71045; 78452; 80048; 80053; 80061; 80306; 80320; 81000; 82150; 82274; 82550; 82553; 82728; 83540; 83550; 83690; 83735; 83874; 83880; 84443; 84484; 85014; 85018; 85025; 85027; 85610; 85730; 86850; 86900; 86901; 86920; 87081; 87636; 88305; 93005; 93017; 93041; 93306; 96374; 96376

== ENCOUNTER 2020-12-09 14:59 | Emergency (ER) | payer OTHER ==
[~2020-12-09] VITALS: Ht 180 cm; Wt 79.3 kg
[~2020-12-09 14:59] MED LIST changes: +ACET-2267 PO; +CARV6.252 PO; +ESOM20CA58 PO; +FERR325T24 PO; +IBUP-2473 PO; +ROSU20TA32 PO
[2020-12-09] MEDS ORDERED: LABETALOL HCL 20 MG/4 ML VIAL IV ONE (15:45)
[2020-12-09] MEDS ORDERED: NS IV 500 ML 500 ML IV SCH (15:45)
[2020-12-09] MEDS ORDERED: ACETAMINOPHEN 325 MG TABLET PO ONE (15:45)
[2020-12-09 15:56] LABS: BASOPHILS # (AUTO) 0.1 10^3/uL (0.0-0.1); BASOPHILS % (AUTO) 1 % (0-10); EOSINOPHILS # (AUTO) 0.2 10^3/uL (0.0-0.3); EOSINOPHILS % (AUTO) 3 % (0-10); HEMATOCRIT 33 % (40-54); HEMOGLOBIN 9.8 g/dL (13.3-17.7); LYMPHOCYTES # (AUTO) 1.3 10^3/uL (1.0-4.0); LYMPHOCYTES % (AUTO) 21 % (12-44); MEAN CORPUSCULAR HEMOGLOBIN 22 pg (25-34); MEAN CORPUSCULAR HGB CONC 30 g/dL (32-36); MEAN CORPUSCULAR VOLUME 74 fL (80-99); MEAN PLATELET VOLUME 9.4 fL (9.0-12.2); MONOCYTES # (AUTO) 0.6 10^3/uL (0.0-1.0); MONOCYTES % (AUTO) 9 % (0-12); NEUTROPHILS # (AUTO) 4.3 10^3/uL (1.8-7.8); NEUTROPHILS % (AUTO) 67 % (42-75); PLATELET COUNT 316 10^3/uL (130-400); WHITE BLOOD COUNT 6.5 10^3/uL (4.3-11.0)
--- NOTE | 2020-12-09 16:03 | ED Headache ---
General Chief Complaint: Head/Cervical Problems Stated Complaint: AMARO,PRESSURE BEHIND EYES Nursing Triage Note: PT PRESENTS TO ED WITH COMPLAINTS OF AMARO SINCE HE HAD AN IRON INFUSION SATURDAY WHILE IN THE HOSPITAL. PT REPORTS HE ALSO FEELS LIKE HE IS HAVING SOME PALPITATIONS AT NIGHT. PT REPORTS HE RECENTLY HAD A STRESS TEST DONE AND WAS TOLD IT CAME BACK OK. Source: patient Exam Limitations: no limitations History of Present Illness Date Seen by Provider: Dec 09, 2020 Time Seen by Provider: 15:30 Initial Comments Patient is a 60-year-old male who presents to the emergency room with a chief complaint of a global/generalized headache that is more intense just behind his eyes. He states light precipitates a worsening of his headache. He states that the headache has started within the last couple of days. Patient recently had a hospital admission for significant and profound anemia with a hemoglobin of 4, etiology unknown. Patient states that he was discharged 4 days ago. He was recently started on a couple of blood pressure medications. Has known chronic kidney disease. Denies chest pain currently but has had a "fluttering" intermittently over the last couple of days. Denies shortness of breath. No abdominal pain, nausea vomiting. No problems with balance or coordination. 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 Denies black or bloody stool, urinary complaints, swelling in his legs or rashes. No fevers or chills. No Covid concerns. All other review of systems reviewed and negative except as stated Timing/Duration: 24 hours Severity/Quality: moderate, pressure Location: frontal (orbital) Prior Headaches/Recent Trauma: occasional headaches Modifying Factors: worse with exposure to light Associated Symptoms: other (occasional palpitations) Allergies and Home Medications Allergies Coded Allergies: Penicillins (Unverified Allergy, Unknown, 05/06/06) Patient Home Medication List Home Medication List Reviewed: Yes Acetaminophen (Tylenol Extra Strength) 500 Mg Tablet, 1,000 MG PO Q8H PRN for PAIN-MILD (1-4), (Reported) Entered as Reported by: MARISA MOSQUERA on 12/05/20 1139 Carvedilol (Carvedilol) 6.25 Mg Tablet, 6.25 MG PO BID Prescribed by: ARMEN ROME on 12/05/20 1400 Esomeprazole Magnesium (Nexium 24Hr) 20 Mg Capsule., 20 MG PO DAILY, (Reported) Entered as Reported by: MARISA MOSQUERA on 12/05/20 1139 Ferrous Sulfate (Ferosul) 325 Mg Tablet, 325 MG PO TIDWM Prescribed by: ARMEN ROME on 12/05/20 1400 Ibuprofen (Ibuprofen) 200 Mg Tablet, 400-600 MG PO Q8H PRN for PAIN-MILD (1-4), (Reported) Entered as Reported by: MARISA MOSQUERA on 12/05/20 1139 Rosuvastatin Calcium (Rosuvastatin Calcium) 20 Mg Tablet, 20 MG PO DAILY Prescribed by: ARMEN ROME on 12/05/20 1400 Discontinued Medications Amlodipine Besylate (Norvasc Tablet) 10 Mg Tablet, 1 EACH PO DAILY, (Reported) Discontinued Reason: No Longer Taking Entered as Reported by: ÁNGELA ISAAC on 01/21/13 0247 Aspirin (Ecotrin) 81 Mg Tablet., 81 MG PO DAILY, (Reported) Discontinued Reason: No Longer Taking Entered as Reported by: PRASAD HARPER on 01/22/13 0826 Hydrocodone Bit/Acetaminophen (Lortab 7.5 Mg Tablet) 1 Each Tablet, 1 EACH PO Q6HR PRN, (Reported) Discontinued Reason: No Longer Taking Entered as Reported by: CURTIS HECTOR on 01/21/13 0521 Hyoscyamine Sulfate (Levsin) 0.125 Mg Tablet, 0.125 MG PO Q4H PRN for CRAMPS Discontinued Reason: No Longer Taking Prescribed by: NEVAEH TIERNEY on 04/08/17 0800 Ondansetron (Ondansetron Odt) 4 Mg Tab.rapdis, 4 MG PO Q6H PRN for NAUSEA/VOMITING Discontinued Reason: No Longer Taking Prescribed by: MIGUEL HAIRSTON on 09/26/16 1540 Pantoprazole Sodium (Protonix) 40 Mg Tablet., 1 TAB PO DAILY, (Reported) Discontinued Reason: No Longer Taking Entered as Reported by: PRASAD HARPER on 01/22/13 0825 Sucralfate (Carafate) 1 Gm Tab, 1 GM PO TID, (Reported) Discontinued Reason: No Longer Taking Entered as Reported by: PRASAD HARPER on 01/22/13 0825 Review of Systems Review of Systems Constitutional: see HPI Eyes: Photophobia Ears, Nose, Mouth, Throat: no symptoms reported Respiratory: no symptoms reported Cardiovascular: palpitations Gastrointestinal: no symptoms reported Genitourinary: no symptoms reported Musculoskeletal: no symptoms reported Skin: no symptoms reported Psychiatric/Neurological: Headache All Other Systems Reviewed Negative Unless Noted: Yes Past Zedgqbn-Usgiae-Ugmssy Hx Patient Social History Tobacco Use?: No Substance use?: No Alcohol Use?: No Pt feels they are or have been: No Seasonal Allergies Seasonal Allergies: No Past Medical History Surgery/Hospitalization HX: CHOLECYSTECTOMY APPENDECTOMY RIGHT PARTIAL NEPHRECTOMY RIGHT HEMICOLECTOMY CARDIAC CATH RENAL STENT Surgeries: Yes (right hemicolectomy) Appendectomy, Gallbladder, Nephrectomy Respiratory: No Cardiac: Yes Hypertension, Pericarditis Neurological: No Reproductive Disorders: No Genitourinary: No Renal Failure Gastrointestinal: Yes (CKD - GFR 30 in 2018) Gastroesophageal Reflux, Harley's Esophagus, Gall Bladder Disease Musculoskeletal: No Endocrine: No HEENT: No Loss of Vision: Denies Hearing Impairment: Denies Cancer: Yes Colon, Kidney Did You Recieve Any Treatments: Yes What Type of Treatment Did You: Surgical Intervention Psychosocial: No Integumentary: No Blood Disorders: No Family Medical History Heart Disease, Cancer, Diabetes, Hypertension, Psychiatric Problems, Other Conditions/Hx Sister alive and healthy Physical Exam Vital Signs Vital Signs - First Documented 12/09/20 15:13 Temp 36.6 Pulse 101 Resp 20 B/P (MAP) 195/114 (141) Pulse Ox 100 Capillary Refill : Less Than 3 Seconds Height, Weight, BMI Height: 5'10.00" Weight: 167lbs. 3.0oz. [id number]; 24.00 BMI Method:Stated General Appearance: WD/WN, no apparent distress HEENT: PERRL/EOMI, normal ENT inspection, TMs normal, pharynx normal Neck: non-tender, full range of motion, supple, normal inspection Cardiovascular: regular rate, rhythm Respiratory: lungs clear, normal breath sounds, no respiratory distress, no accessory muscle use Gastrointestinal: normal bowel sounds, soft, tenderness (a little bit of right flank tenderness) Extremities: non-tender, normal inspection, no pedal edema, no calf tenderness Psychiatric: alert, oriented x 3 Crainal Nerves: normal hearing, normal speech, PERRL Coordination/Gait: normal finger to nose, normal gait Motor/Sensory: no motor deficit, no sensory deficit Skin: normal color, warm/dry Progress/Results/Core Measures Results/Orders Lab Results Laboratory Tests Test 12/09/20 15:44 Range/Units White Blood Count 6.5 4.3-11.0 10^3/uL Red Blood Count 4.49 4.30-5.52 10^6/uL Hemoglobin 9.8 L 13.3-17.7 g/dL Hematocrit 33 L 40-54 % Mean Corpuscular Volume 74 L 80-99 fL Mean Corpuscular Hemoglobin 22 L 25-34 pg Mean Corpuscular Hemoglobin Concent 30 L 32-36 g/dL Red Cell Distribution Width 10.0-14.5 % Platelet Count 316 130-400 10^3/uL Mean Platelet Volume 9.4 9.0-12.2 fL Immature Granulocyte % (Auto) 1 % Neutrophils (%) (Auto) 67 42-75 % Lymphocytes (%) (Auto) 21 12-44 % Monocytes (%) (Auto) 9 0-12 % Eosinophils (%) (Auto) 3 0-10 % Basophils (%) (Auto) 1 0-10 % Neutrophils # (Auto) 4.3 1.8-7.8 10^3/uL Lymphocytes # (Auto) 1.3 1.0-4.0 10^3/uL Monocytes # (Auto) 0.6 0.0-1.0 10^3/uL Eosinophils # (Auto) 0.2 0.0-0.3 10^3/uL Basophils # (Auto) 0.1 0.0-0.1 10^3/uL Immature Granulocyte # (Auto) 0.0 0.0-0.1 10^3/uL Neutrophils % (Manual) 72 % Lymphocytes % (Manual) 18 % Monocytes % (Manual) 7 % Eosinophils % (Manual) 2 % Atypical Lymphocytes 1 % Clumped Platelets Polychromasia SLIGHT Hypochromasia MODERATE Anisocytosis SLIGHT Microcytosis SLIGHT Crenated Cell SLIGHT Elliptocytes SLIGHT Sodium Level 133 L 135-145 MMOL/L Potassium Level 3.8 3.6-5.0 MMOL/L Chloride Level 106 98-107 MMOL/L Carbon Dioxide Level 18 L 21-32 MMOL/L Anion Gap 9 5-14 MMOL/L Blood Urea Nitrogen 14 7-18 MG/DL Creatinine 1.82 H 0.60-1.30 MG/DL Estimat Glomerular Filtration Rate 38 BUN/Creatinine Ratio 8 Glucose Level 116 H 70-105 MG/DL Calcium Level 9.2 8.5-10.1 MG/DL My Orders Orders - RADHA GILES MD Ed Iv/Invasive Line Start (12/09/20 15:39) Cbc With Automated Diff (12/09/20 15:39) Basic Metabolic Panel (12/09/20 15:39) Acetaminophen Tablet/Caplet (Tylenol T (12/09/20 15:45) Ns Iv 500 Ml (Sodium Chloride 0.9%) (12/09/20 15:45) Labetalol Injection (Normodyne Injection (12/09/20 15:45) Manual Differential (12/09/20 15:44) Medications Given in ED Current Medications Medications Dose Ordered Sig/Jamari Route Start Time Stop Time Status Last Admin Dose Admin Acetaminophen 650 mg ONCE ONCE PO 12/09/20 15:45 12/09/20 15:46 DC 12/09/20 15:54 650 MG Labetalol HCl 20 mg ONCE ONCE IV 12/09/20 15:45 12/09/20 15:46 DC 12/09/20 15:54 20 MG Vital Signs/I&O 12/09/20 15:13 Temp 36.6 Pulse 101 Resp 20 B/P (MAP) 195/114 (141) Pulse Ox 100 Blood Pressure Mean: 141 Progress Progress Note : Time: 16:28 Progress Note feels MUCH better after tylenol, fluids and BP management,. BP down to systolic of 150 Departure Impression Primary Impression: Headache Qualified Codes: R51.9 - Headache, unspecified Additional Impression: Hypertensive urgency Disposition: 01 HOME, SELF-CARE Condition: Stable Departure-Patient Inst. Decision time for Depature: 16:55 Referrals: [facility] NO,LOCAL PHYSICIAN (PCP) Primary Care Physician Patient Instructions: High Blood Pressure Emergencies, Headache, Adult ED Add. Discharge Instructions: continue to drink fluids to stay well hydrated. Continue your blood pressure medications as prescribed. tylenol as needed for headache. Call scheduling at 0830 Saturday morning at [phone]. They will take care of scheduling your test, clarify the order and have you talk to the director financial systems. Talking to the director financial systems will not prevent you from getting the Cat Scans you need. You should be able to get the scans done next week. Come back to the Emergency Department for any new, concerning or emergent complaints. Copy Copies To 1: JOON GRAY KATHRYN M MD Dec 09, 2020 16:03
[2020-12-09 16:12] LABS: POTASSIUM 3.8 MMOL/L (3.6-5.0)
[2020-12-09 16:14] LABS: CALCIUM 9.2 MG/DL (8.5-10.1)
[2020-12-09 16:18] LABS: CREATININE SERUM 1.82 MG/DL (0.60-1.30)
[2020-12-09 16:38] LABS: ATYPICAL LYMPHOCYTES 1 %; EOSINOPHILS % (MANUAL) 2 %; LYMPHOCYTES % (MANUAL) 18 %; MONOCYTES % (MANUAL) 7 %; NEUTROPHILS % (MANUAL) 72 %
[2020-12-09 16:39] LABS: ANISOCYTOSIS SLIGHT; CRENATED RBC SLIGHT; ELLIPT/OVALOCYTES SLIGHT; HYPOCHROMASIA MODERATE; MICROCYTOSIS SLIGHT; POLYCHROMASIA SLIGHT
[2020-12-09 17:07] VITALS: BP 159/88
== END 2020-12-09 17:07 | disposition home or self-care (01) ==
LOC: EDUNIT# 14:59 → ER 15:01
DX: I16.0 Hypertensive urgency (principal); I12.9 Hypertensive chronic kidney disease with stage 1 through stage 4 chronic kidney disease, or unspecified chronic kidney disease; N18.9 Chronic kidney disease, unspecified; K21.9 Gastro-esophageal reflux disease without esophagitis; Z85.528 Personal history of other malignant neoplasm of kidney; Z85.038 Personal history of other malignant neoplasm of large intestine; Z90.5 Acquired absence of kidney; Z96.0 Presence of urogenital implants; Z90.49 Acquired absence of other specified parts of digestive tract; Z79.82 Long term (current) use of aspirin; Z79.899 Other long term (current) drug therapy
CPT/HCPCS: 36415; 80048; 85007; 85027; 96361; 96374

== ENCOUNTER → 2020-12-26 | Outpatient (CLI) | payer OTHER ==
--- NOTE | 2020-12-26 09:57 | Diagnostic Imaging Report ---
PROCEDURE: CT chest, abdomen, and pelvis without contrast. TECHNIQUE: Multiple contiguous axial images were obtained through the chest, abdomen, and pelvis without the use of intravenous contrast. Auto Exposure Controls were utilized during the CT exam to meet ALARA standards for radiation dose reduction. INDICATION: Chronic kidney disease and history of renal cell carcinoma. Correlation is made with prior CT abdomen and pelvis study from 04/08/2017. CT CHEST: No axillary lymphadenopathy is identified. No mediastinal or hilar lymphadenopathy is detected. No pericardial or pleural fluid is identified. No pulmonary infiltrates, nodules or masses are identified. IMPRESSION: Unremarkable CT of the chest. No definite thoracic lymphadenopathy or evidence of pulmonary metastatic disease is identified. CT abdomen and pelvis: No discrete liver mass is detected. Gallbladder surgically absent. No biliary ductal dilatation is seen. The pancreas and spleen are unremarkable. Postsurgical changes to the right kidney are noted. This appears stable. No definite residual or recurrent mass is identified. Left kidney is unremarkable. Postop changes involving the right colon are also noted. Aorta is nonaneurysmal. Bowel loops are normal in caliber. There is no obstruction. No free fluid or fluid collection is identified. No definite abdominal or pelvic lymphadenopathy is seen. Bony structures appear nonacute. IMPRESSION: Stable noncontrast CT abdomen and pelvis study since 04/08/2017. No definite residual or recurrent neoplasm or evidence of the lymphadenopathy is detected. Dictated by: Dictated on workstation # [id number]
== END ==
LOC: RAD 08:40
PROVIDERS: ATTEND Nurse Practitioner Family
DX: N18.9 Chronic kidney disease, unspecified (principal); D3A.00 Benign carcinoid tumor of unspecified site; Z85.528 Personal history of other malignant neoplasm of kidney
CPT/HCPCS: 71250; 74176